=== PATIENT | female | born 1970 | race Caucasian/White ===

== ENCOUNTER → 2019-03-02 08:48 | Outpatient (CLI) | payer OTHER, SELFPAY ==
--- NOTE | 2019-03-02 08:52 | BI_ITS ---
MAMMOGRAPHY - BILATERAL SCREENING REASON FOR EXAM: Female, 48 years old. Routine annual screening examination. PERTINENT HISTORY: Grandmother with breast cancer. Prior bilateral breast reduction surgery. TECHNIQUE: Digital bilateral breast mila (3D mammographic acquisition) in the CC and MLO projections. 2-D mediolateral oblique (MLO) and craniocaudad (CC) views of both breasts were obtained. CAD: Full Field Digital Mammography with Computer Added Detection was performed. COMPARISON: Comparison is made with prior examination dated March 25, 2016. FINDINGS: Breast Composition: The breasts are heterogeneously dense, which may obscure small masses. There are no dominant masses or suspicious calcifications. No other significant abnormalities are identified. There has been no significant change since the prior study. BI/SCREEN MAMM (CAD) W/MILA BILAT IMPRESSION: Stable bilateral screening mammogram. Yearly follow-up mammogram recommended. (A) ASSESSMENT CATEGORY: BIRADS Category 1: Negative. A letter regarding these results will be sent to the patient by the facility within 30 days. Approximately 10% of breast cancers are not detected by mammography. A normal mammogram should not delay biopsy of a clinically suspicious abnormality. [id number] Electronically Signed: Phillip Zaidi, at 8:44 EST , Service support ,
== END ==
PROVIDERS: Family Provider Internal Medicine; PCP Internal Medicine; Referring Provider Internal Medicine; Visit Provider Internal Medicine
DX: Z12.31 Encounter for screening mammogram for malignant neoplasm of breast (principal); I10 Essential (primary) hypertension
CPT/HCPCS: 77063; 77067

== ENCOUNTER → 2023-09-25 | Outpatient (CLI) | payer OTHER, SELFPAY ==
[2023-09-25 14:53] LABS: ALB/GLOB Ratio 1.2 RATIO (0.9-2.4); AST(SGOT) 17 U/L (15-37); Alanine Aminotransfer ALT/SGPT 23 U/L (13-56); Alkaline Phosphatase 66 U/L (45-117); Anion Gap 7 (5-15); BUN 15 mg/dL (7-18); BUN/Creat Ratio 20.9 RATIO (10-20); Calcium,Total 9.5 mg/dL (8.5-10.1); Chloride 105 mmol/L (98-107); Cholesterol 251 mg/dL (200); Creatinine, Serum 0.72 mg/dL (0.55-1.02); EST Glomerular Filtration Rate 90 mL/min (>60); Est Glom Filt Rate - Afr Amer 109 mL/min (>60); Globulin 3.2 g/dL (2.2-4.2); Glucose 93 mg/dL (74-106); High Density Lipoprotein 47 mg/dL; Potassium 3.6 mmol/L (3.5-5.1); Protein, Total 7.2 g/dL (6.4-8.2); Sodium Level 139 mmol/L (136-145); Thyroid Stim Hormone (TSH) 1.71 uIU/mL (0.358-3.74); Triglycerides 211 mg/dL; Very Low Density Lipoprotein 42 mg/dL (5-40)
== END | disposition home or self-care (01) ==
PROVIDERS: PCP Family Medicine; Referring Provider Family Medicine; Visit Provider Family Medicine
DX: Z12.31 Encounter for screening mammogram for malignant neoplasm of breast (principal); Z13.220 Encounter for screening for lipoid disorders; Z13.1 Encounter for screening for diabetes mellitus
CPT/HCPCS: 36415; 80053; 80061; 84443

== ENCOUNTER → 2024-10-31 | Outpatient (CLI) | payer OTHER, SELFPAY ==
[2024-10-31 10:09] LABS: AST(SGOT) 16 U/L (<=31); Alanine Aminotransfer ALT/SGPT 18 U/L (<=34); Albumin, Serum 4.4 g/dL (3.5-5.0); Alkaline Phosphatase 85 U/L (35-104); Anion Gap 12 (5-15); BUN 14 mg/dL (4-19); BUN/Creat Ratio 18.2 RATIO (10-20); Calcium,Total 9.7 mg/dL (7.6-11.0); Carbon Dioxide 27.2 mmol/L (21.0-32.0); Chloride 101 mmol/L (98-108); Cholesterol 276 mg/dL (<=200); Globulin 2.5 g/dL (2.2-4.2); Glucose 91 mg/dL (70-99); Low Density Lipoprotein Calc. 184 mg/dL; Potassium 4.1 mmol/L (3.3-5.1); Triglycerides 237 mg/dL; Very Low Density Lipoprotein 47 mg/dL (5-40); cholesterol:hdl ratio screen 6.16
== END | disposition home or self-care (01) ==
PROVIDERS: PCP Family Medicine; Referring Provider Family Medicine; Visit Provider Family Medicine
DX: E78.5 Hyperlipidemia, unspecified (principal); Z13.1 Encounter for screening for diabetes mellitus
CPT/HCPCS: 36415; 80053; 80061

== ENCOUNTER → 2024-12-04 | Outpatient (CLI) | payer OTHER, SELFPAY ==
--- NOTE | 2024-12-04 10:11 | VDLE_ITS ---
Reason For Study Reason For Study: Pain RIGHT LEFT GSV is normal. CFV is compressible, spontaneous, phasic, competent, CFV is compressible, spontaneous, phasic, competent and demonstrates normal augmentation. and demonstrates normal augmentation. FV is compressible, spontaneous, phasic, competent and demonstrates normal augmentation. POP V is compressible, spontaneous, phasic, competent and demonstrates normal augmentation. T/P Trunk is compressible. PTV is compressible. RT PerV is compressible. Noncompressible bright intraluminal echoes noted in the prox SSV consistent with chronic DVT. Procedure This is a venous duplex using B-mode, color flow and spectral Doppler. Exam performed in department. A preliminary report was called and/or faxed to [facility]. VL/Venous Duplex US, Unilateral Interpretation Summary Deep veins of the right lower extremity are patent and compressible segmentally . There is no evidence of right lower extremity deep vein thrombosis. The right great saphenous vein appears patent a nd compressible segmentally. 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 Ordering Physician: Elvie Campos Referring Physician: Elvie Campos Performed By: Brandi Gallagher RVT
--- OUTSIDE RECORDS SUMMARY | 2024-12-04 18:50 | XMS RPT_ITS | CCD ---
Author Organization [facility] Care Team Providers Care Dietician Name Role Phone Dee Stevens Unavailable Juan Richardson Unavailable Fast, Zora A Unavailable Kit Delarosa Unavailable Unavailable Oyla Lopez E Unavailable Gabriela Liriano Unavailable Unavailable Unavailable Unavailable Susan Sam Unavailable Unavailable Unavailable Unavailable Gabriela Liriano Unavailable Unavailable Kit Delarosa Unavailable Unavailable Kit Russell Unavailable Unavailable Nina Sheth Unavailable Unavailable Rodney DO, Dee Unavailable Dr. Juan Richardson Unavailable Fast DO, Zora A Unavailable Nina Sheth LPN Unavailable Unavailable Kit Russell LPN Unavailable Unavailable Gabriela Liriano RN Unavailable Unavailable Unavailable Unavailable Az Celaya MD Primary Care Provider [phone] Rodney DO Dee Unavailable Fast DO, Zora A Unavailable Az Celaya MD Primary Care Provider [phone] Unavailable Primary Care Provider Unavailabl e Magdi PA-C, Trish Primary Care Provider [phone] Magdi PA-CTrish Attending Provider Magdi PA-C, Trish Referring Provider Elvie Campos Attending Unavailable Magdi PA, Trish Primary Care Unavailable Magdi PA, Trish Referring Unavailable Magdi PA, Trish Referring Unavailable Magdi PA, Trish Primary Care Unavailable Juli Moyerberly Attending Unavailable Campos PA, Elvie Attending Provider Medications Current Medications Medication Drug Class(es) Dates Sig (Normalized) Sig (Original) cholecalciferol 0.025 mg oral capsule (20 sources) Vitamin D Start: 11-28-2024 take 1 capsule by mouth once daily Cholecalciferol (Vitamin D3) 25 mcg (1,000 unit) capsule Active 25 ug PO daily November 28, 2024 12:00am take 1 tablet by mouth once laura y cholecalciferol (VITAMIN D3) 5,000 unit tab Take 5,000 Units by mouth once daily. 0 Active take 1 [IU] by mouth once daily Vitamin D3 5000 UNIT Oral Capsule daily (5000 UNIT) Active Comment on above: Take 5,000 Units by mouth once daily. Kandice Ugjw-Xdmfvtmb-Mtbpkxcvy Ac (Stebbins Oil) 1,000 mg capsule (1 source) Start: 11-28-2024 Kandice Ceoo-Lhhecomo-Vrijyj williams Ac (Stebbins Oil) 1,000 mg capsule Active 1 NMA PO THREE TIMES A DAY November 28, 2024 12:00am administer with meals hydroCHLOROthiazide 12.5 mg / losartan potassium 100 mg oral tablet (20 sources) Thiazide Diuretic, Angiotensin 2 Receptor Ragini Start: 11-28-2024 Losartan-Hydrochloro thiazide 100-12.5 mg tablet Active 1 {tbl} PO daily November 28, 2024 12:00am Start: 03-22-2015 End: 09-17-2021 take 1 tablet by mouth once daily losartan-hydroCHLOROthiazide (HYZAAR) 100-12.5 mg per tablet Take 1 tablet by mouth once daily. 90 tablet 3 09/17/2021 Active Comment on above: Take 1 tablet by kimi once daily. tumeric (1 source) Start: 11-28-2024 tumeric Active PO November 28, 2024 12:00am Completed/Discontinued Medications Medication Drug Class(es) Dates Sig (Normalized) Sig (Original) amLODIPine 5 mg oral tablet (15 sources) Dihydropyridine Calcium Channel Ragini Start: 05-24-2012 End: 05-24-2012 take 1 tablet by mouth once daily AMLODIPINE BESYLATE, 5MG (Oral Tablet) 1 Tablet qd for 0 days Quantity: 30 {Tablet} Refills: 0 Ordered: 24-May-2012 Dee Stevens DO, DO, Kathleen Start : 24-May-2012 End : 24-May-2012 Discontinued Comments: edema Comment on above: edema amoxicillin 875 mg / clavulanate 125 mg oral tablet (15 sources) Penicillin-class Antibacterial Start: 07-17-2017 End: 07-31-2017 take 1 tablet by mouth twice daily Augmentin 875-125 MG Oral Tablet 1 (one) Tablet bid for 14 days Quantity: 28 {Tablet} Refills: 0 Ordered: 17-Jul-2017 Olya Lopez Start : 17-Jul-2017 End : 31-Jul-2017 Inactive biotin 5 mg oral tablet (15 sources) Start: 12-04-2015 take 1 tablet by mouth once daily Biotin 5000 MCG Oral Tablet 1 (one) Tablet qd for 30 days Refills: 0 Ordered: 04-Dec-2015 Dee Stevens DO, DO, Kathleen Start : 04-Dec-2015 Active clotrimazole 10 mg oral lozenge (15 sources) Azole Antifungal Start: 07-17-2017 End: 07-27-2017 Clotrimazole 10 MG Mouth/Throat Sean 1 (one) Sean 5 x daily for 10 days Quantity: 50 {Sean} Refills: 0 Ordered: 17-Jul-2017 Olya Lopez Start : 17-Jul-2017 End : 27-Jul-2017 Inactive evening primrose oil 1000 mg oral capsule (15 sources) Start: 12-04-2015 take 1 capsule by mouth once daily Evening Stebbins Oil 1000 MG Oral Capsule 1 (one) Capsule qd for 30 days Refills: 0 Ordered: 04-Dec-2015 Dee Stevens DO, DO, Kathleen Start : 04-Dec-2015 Active evening primrose oil (EVENING PRIMROSE ORAL) (7 sources) evening primrose oil (EVENING PRIMROSE ORAL) Take 1,000 mg by mouth. 0 Active Comment on above: Take 1,000 mg by kimi th. 24 hr felodipine 5 mg extended release oral tablet (15 sources) Dihydropyridine Calcium Channel Ragini Start: 11-23-2009 End: 04-05-2011 take 1 tablet by mouth once daily PLENDIL, 5MG (Oral Tablet Extended Release 24 Hour) 1 Tablet ER 24HR QD for 90 days Quantity: 90 {Tablet_ER_24HR} Refills: 3 Ordered: 23-Nov-2009 Tamra Prado Start : 23-Nov-2009 End : 05-Apr-2011 Discontinued Comments: This order discontinued per [facility]. Comment on above: This order discontin ued per [facility]. fluticasone propionate 0.05 mg/actuat metered dose nasal spray (16 sources) Corticosteroid Start: 12-19-2017 Fluticasone Propionate 50 MCG/ACT Nasal Suspension 1 (one) Suspension uad for 0 days Quantity: 1 {Bottle} Refills: 0 Ordered: 19-Dec-2017 Dee Stevens DO, DO, Kathleen Start : 19-Dec-2017 Active Start: 03-22-2015 End: 07-05-2021 take 2 spray(s) nasal route once daily fluticasone (FLONASE) 50 mcg/actuation nasal spray Use 2 Sprays in each nostril once daily. 1 Bottle 0 03/22/2015 07/05/2021 Discontinued Comment on above: Use 2 Sprays in each nostril once daily. furosemide 20 mg oral tablet (15 sources) Loop Diuretic Start: 013 End: 013 take 1 tablet by mouth once daily LASIX, 20MG (Oral Tablet) 1 Tablet qd for 0 days Quantity: 2 {Tablet} Refills: 0 Ordered: 18-Jun-2012 Gabriela Liriano RN Start : 24-May-2012 End : 18-Jun-2012 Inactive hydroCHLOROthiazide 12.5 mg oral tablet (15 sources) Thiazide Diuretic Start: 022 take 1 tablet by mouth once daily hydroCHLOROthiazide 12.5 MG Oral Tablet 1 (one) Tablet daily for 30 days Quantity: 30 {Tablet} Refills: 0 Ordered: 03-Aug-2021 Dee Stevens DO, DO, Kathleen Start : 03-Aug-2021 Active Start: 06-28-2021 take 1 tablet by kimi th once daily hydroCHLOROthiazide 12.5 MG Oral Tablet 1 (one) Tablet daily for 30 days Quantity: 30 {Tablet} Refills: 0 Ordered: 28-Jun-2021 Dee Stevens DO, DO, Kathleen Start : 28-Jun-2021 Active Start: 05-31-2021 take 1 tablet by kimi th once daily hydroCHLOROthiazide 12.5 MG Oral Tablet 1 (one) Tablet daily for 30 days Quantity: 30 {Tablet} Refills: 0 Ordered: 31-May-2021 Rodney LUIS, Dee Stevens DO Dee Start : 31-May-2021 Active Start: 05-12-2020 take 1 tablet by kimi th once daily hydroCHLOROthiazide 12.5 MG Oral Tablet 1 (one) Tablet daily for 90 days Quantity: 90 {Tablet} Refills: 3 Ordered: 12-May-2020 Rodney DO, Dee Stevens DO Dee Start : 12-May-2020 Active Start: 05-06-2020 take 1 tablet by kimi th once daily hydroCHLOROthiazide 12.5 MG Oral Tablet 1 (one) Tablet daily for 90 days Quantity: 90 {Tablet} Refills: 0 Ordered: 06-May-2020 Rodney LUIS, Dee Stevens DO Dee Start : 06-May-2020 Active Start: 03-30-2020 End: 03-24-2020 take 1 tablet by mouth once daily hydroCHLOROthiazide 12.5 MG Oral Tablet 1 (one) Tablet daily for 90 days Quantity: 90 {Tablet} Refills: 0 Ordered: 30-Mar-2020 Rodney LUIS, Dee Stevens DO Dee Start : 30-Mar-2020 End : 24-Mar-2020 Active Start: 12-25-2019 take 1 tablet by kimi th once daily hydroCHLOROthiazide 12.5 MG Oral Tablet 1 (one) Tablet daily for 90 days Quantity: 90 {Tablet} Refills: 0 Ordered: 25-Dec-2019 Susan Sam CMA Start : 25-Dec-2019 Active Start: 01-02-2019 take 1 tablet by kimi th once daily hydroCHLOROthiazide 12.5 MG Oral Tablet 1 (one) Tablet daily for 90 days Quantity: 90 {Tablet} Refills: 3 Ordered: 02-Jan-2019 Rodney LUIS Dee Stevens DO Dee Start : 02-Jan-2019 Active Start: 07-11-2012 End: 05-22-2013 take 1 tablet by mouth once daily, then take 0.5 tablet by mouth once daily HYDROCHLOROTHIAZIDE, 12.5MG (Oral Tablet) 1/2 Tablet qd with plain benicar 1/2 20mg samples for 0 days Quantity: 15 {Tablet} Refills: 0 Ordered: 22-May-2013 Tamra Prado Start : 11-Jul-2012 End : 22-May-2013 Discontinued Comments: DISREGARD 1 qd rx sent in earlier, patient needs 1/2 qd Comment on above: DISREGARD 1 qd rx se nt in earlier, patient needs 1/2 qd hydroCHLOROthiazide 12.5 mg / olmesartan medoxomil 20 mg oral tablet (15 sources) Thiazide Diuretic, Angiotensin 2 Receptor Ragini Start: 013 End: 013 take 1 tablet by mouth once daily BENICAR HCT, 20-12.5MG (Oral Tablet) 1 (one) Tablet qd for 0 days Quantity: 90 {Tablet} Refills: 3 Ordered: 30-Aug-2012 Prasanna Zora Start : 30-Aug-2012 End : 30-Aug-2012 Discontinued losartan potassium 100 mg oral tablet (13 sources) Angiotensin 2 Receptor Ragini Start: take 1 tablet by mouth once daily Losartan Potassium 100 MG Oral Tablet 1 (one) Tablet daily for 90 days Quantity: 90 {Tablet} Refills: 3 Ordered: 03-Jun-2021 Dee Stevens DO, DO, Kathleen Start : 03-Jun-2021 Active Start: 05-06-2020 take 1 tablet by kimi once daily Losartan Potassium 100 MG Oral Tablet 1 (one) Tablet daily for 90 days Quantity: 90 {Tablet} Refills: 3 Ordered: 06-May-2020 Dee Stevens DO, DO, Kathleen Start : 06-May-2020 Active Start: 02-24-2020 End: 02-23-2020 take 1 tablet by mouth once daily Losartan Potassium 100 MG Oral Tablet 1 (one) Tablet daily for 90 days Quantity: 90 {Tablet} Refills: 0 Ordered: 24-Feb-2020 Dee Stevens DO, DO, Kathleen Start : 24-Feb-2020 End : 23-Feb-2020 Active Start: 02-24-2020 End: 02-23-2020 take 1 tablet by mouth once daily Losartan Potassium 100 MG Oral Tablet 1 (one) Tablet daily for 90 days Quantity: 90 {Tablet} Refills: 0 Ordered: 24-Feb-2020 Dee Stevens DO, DO, Kathleen Start : 24-Feb-2020 End : 23-Feb-2020 Active Start: 11-25-2019 take 1 tablet by kimi th once daily Losartan Potassium 100 MG Oral Tablet 1 (one) Tablet daily for 90 days Quantity: 90 {Tablet} Refills: 0 Ordered: 25-Nov-2019 Susan Sam CMA Start : 25-Nov-2019 Active Start: 01-02-2019 take 1 tablet by kimi th once daily Losartan Potassium 100 MG Oral Tablet 1 (one) Tablet daily for 90 days Quantity: 90 {Tablet} Refills: 3 Ordered: 02-Jan-2019 Dee Stevens DO, DO, Kathleen Start : 02-Jan-2019 Active No current meds at this time (15 sources) No current meds at this time Inactive OTC PRODUCT (1 source) End: 07-05-2021 take 500 mg by mouth once daily OTC PRODUCT Take 500 mg by mouth once daily. 0 07/05/2021 Discontinued (Erroneous entry) Comment on above: Take 500 mg by mouth once daily. Turmeric Curcumin 500 MG Oral Capsule (15 sources) Start: 12-04-2015 take 1 capsule by mouth once daily Turmeric Curcumin 500 MG Oral Capsule 1 (one) Capsule qd for 30 days Refills: 0 Ordered: 04-Dec-2015 Dee Stevens DO, DO, Kathleen Start : 04-Dec-2015 Active turmeric root extract 500 mg cap (7 sources) Start: 07-05-2021 turmeric root extract 500 mg cap Once daily 0 07/05/2021 Active Comment on above: Once daily Problems Active Problems Problem Classification Problem Date Documented Da te Episodic/Chronic Disorders of lipid metabolism (20 sources) Hyperlipidemia, unspecified; Translations: [Hyperlipidemia] Onset: 11-06-2024 07-17-2017 Chronic Essential hypertension (20 sources) Benign essential hypertension; Translations: [Hypertensive disorder] Onset: 07-05-2021 07-17-2017 Chronic Genitourinary symptoms and ill-defined conditions (20 sources) Blood in urine; Translations: [Hematuria] Resolved: 04-05-2011 06-18-2012 Episodic Immunizations and screening for infectious disease (20 sources) Need for prophylactic vaccination and inoculation against influenza; Translations: [Needs influenza immunization] 05-12-2020 Episodic Menstrual disorders (20 sources) Irregular menstrual cycle; Translations: [Irregular periods] Resolved: 12-04-2015 12-04-2015 Chronic Neoplasms of unspecified nature or uncertain behavior (15 sources) Neoplasm of uncertain behavior of skin; Translations: [Atypical Spitz nevus] 07-17-2017 Episodic Comment on above: refer bonecatrina to sha ve off-if pt wishes Nonmalignant breast conditions (15 sources) Hypertrophy of breast; Translations: [Hypertrophy of breast] 07-17-2017 Episodic Comment on above: Breast reduction 9/0 5 Nutritional deficiencies (20 sources) Vitamin D deficiency; Translations: [Vitamin D deficiency] 07-17-2017 Chronic Other nutritional; endocrine; and metabolic disorders (20 sources) Hypocalcemia; Translations: [Hypocalcemia] 07-17-2017 Chronic Other nutritional; endocrine; and metabolic disorders (13 sources) Body mass index 25-29 - overweight; Translations: [BMI 28.0-28.9,adult] 01-04-2019 Chronic Other screening for suspected conditions (not mental disorders or infectious disease) (9 sources) Patient encounter status; Translations: [Encounter for screening mammogram for breast cancer (Renamed from Encounter for screening mammogram for malignant neoplasm of breast)] 05-12-2020 Episodic Other upper respiratory infections (10 sources) Sinusitis; Translations: [Sinusitis] Resolved: 05-12-2020 05-12-2020 Chronic Residual codes; unclassified (16 sources) Edema; Translations: [Edema] Resolved: 12-04-2015 Episodic Residual codes; unclassified (10 sources) H/O: hysterectomy; Translations: [History of partial hysterectomy] 07-17-2017 Episodic Comment on above: done for uterine fib riods - one ovary remaining Residual codes; unclassified (10 sources) Needs influenza immunization; Translations: [Need for prophylactic vaccination and inoculation against influenza] 07-17-2017 Episodic Residual codes; unclassified (4 sources) Increased body mass index; Translations: [BMI 29.0-29.9,adult] 07-17-2017 Episodic Residual codes; unclassified (5 sources) Non-smoker; Translations: [Nonsmoker] 05-12-2020 Episodic Unclassified (20 sources) Benign essential HTN (401.1) Unclassified (20 sources) Unclassified (20 sources) Patient encounter status; Translations: [Encounter for screening mammogram for breast cancer (Renamed from Encounter for screening mammogram for malignant neoplasm of breast)] 07-17-2017 Unclassified (20 sources) Non-smoker; Translations: [Nonsmoker] 07-17-2017 Unclassified (15 sources) Atypical Nevus(238.2) Unclassified (20 sources) Benign essential HTN Unclassified (20 sources) History of colon polyps Unclassified (15 sources) History of partial hysterectomy Unclassified (18 sources) BMI 28.0-28.9,adult Varicose veins of lower extremity (1 source) Varicose veins of lower extremity; Translations: [Asymptomatic varicose veins of unspecified lower extremity] 12-04-2024 Episodic Past or Other Problems Problem Classification Problem Date Documented Da te Episodic/Chronic Administrative/social admission (10 sources) Medical examinations/report s status; Translations: [Well woman exam] Resolved: 10-12-2009 01-27-2015 Episodic Adverse effects of medical drugs (15 sources) Unspecified adverse effect of unspecified drug, medicinal and biological substance; Translations: [Medication side effects] Resolved: 12-04-2015 12-04-2015 Episodic Benign neoplasm of uterus (15 sources) Uterine leiomyoma; Translations: [Uterine fibroid] Resolved: 12-04-2015 12-04-2015 Episodic Comment on above: going for surgery Diseases of mouth; excluding dental (20 sources) Disorder of tongue; Translations: [Ulcer of mouth] Resolved: 05-12-2020 07-17-2017 Episodic Mycoses (15 sources) Candidiasis of mouth; Translations: [Thrush] Resolved: 05-12-2020 07-17-2017 Episodic Other and unspecified benign neoplasm (20 sources) History of polyp of colon; Translations: [History of colon polyps] Onset: 07-05-2021 07-17-2017 Episodic Comment on above: scope 2016- repeat i n 7yrs Other non-traumatic joint disorders (15 sources) Joint pain; Translations: [Pain in joint involving other specified sites] Resolved: 12-04-2015 12-04-2015 Episodic Comment on above: Shoulder pain Other nutritional; endocrine; and metabolic disorders (18 sources) Body mass index 25-29 - overweight; Translations: [BMI 28.0-28.9,adult] Onset: 07-05-2021 05-12-2020 Episodic Other upper respiratory infections (20 sources) Acute sinusitis; Translations: [Sinusitis] Resolved: 05-12-2020 03-10-2015 Episodic Residual codes; unclassified (14 sources) Edema, unspecified; Translations: [Swelling - edema - symptom] Resolved: 12-04-2015 12-04-2015 Episodic Unclassified (15 sources) Abortions/Miscarria ges; Translations: [Abortions/Miscarri ages] 07-17-2017 Comment on above: Miscarriage Jan Unclassified (15 sources) Deliveries (Parity); Translations: [Deliveries (Parity)] 07-17-2017 Comment on above: 2 Unclassified (20 sources) well female Resolved: 10-12-2009 06-18-2012 Unclassified (15 sources) Sinusitis,acute (461.9) Unclassified (20 sources) Well Woman Exam (V72.31) (Pap,Mammo,Routine Female) (Renamed from Well Woman V72.31 (p,m)) Unclassified (15 sources) Pregnancies (); Translations: [Pregnancies ()] 07-17-2017 Comment on above: 3 Unclassified (20 sources) Unspecified Diagnosis 07-17-2017 Unclassified (15 sources) Medication side effects (995.20) Unclassified (15 sources) Mouth ulcer Unclassified (15 sources) BMI 29.0-29.9,adult Unclassified (15 sources) Tongue irritation Unclassified (15 sources) Thrush Unclassified (20 sources) Uterine Fibroid (218.9) Results Test Name Value Interpretation Reference Range Facility Anion gap in Serum or Plasma Ordered By: Trish Fairbanks on 10-31-2024 Anion gap [Moles/Vol] 12 mmol/L 09-05 [facility] BUN/creatinine ratioOrdered By: Trish Fairbanks 10-31-2024 Urea nitrogen/Creatinine [Mass ratio] 18.2 mg/mg 02-10 [facility] Bilirubin, totalOrdered By: Trish Fairbanks on 10-31-2024 Bilirubin [Mass/Vol] 0.47 mg/dL 0.00-1.30 [facility] Calculated very low density lipoprotein (VLDL) cholesterol measurementOrdered By: Trish Fairbanks on 10-31-2024 Calculated very low density lipoprotein (VLDL) cholesterol measurement 47 mg/dL High 5-40 [facility] Carbon dioxide, total [Moles /volume] in Central venous bloodOrdered By: Trish Fairbanks on 10-31-2024 CO2 [Moles/Vol] 27.2 mmol/L 21.0-32.0 [facility] Chloride assayOrdered By: Luigi hawkinsrogelio Fairbanks on 10-31-2024 Chloride [Moles/Vol] 101 mmol/L 98-108 [facility] Comprehensive Metabolic Prof ilon 10-31-2024 Albumin [Mass/Vol] 4.4 g/dL Normal 3.5-5.0 [facility] Comment on above: Performed By: #### L 500.4100, [id number] #### [facility] [address] [place], [address] Albumin/Globulin [Mass ratio] 1.7 {ratio} Normal 0.9-2.4 [facility] Comment on above: Performed By: #### L 500.4100, [id number] #### [facility] [address] [place], [address] ALK PHOS 85 U/L Normal 35-104 [facility] Comment on above: Performed By: #### L [id number], [id number] #### [facility] [address] [place], [address] ALT [Catalytic activity/Vol] 18 U/L Normal <=34 [facility] Comment on above: Performed By: #### L [id number], [id number] #### [facility] [address] [place], [address] AST [Catalytic activity/Vol] 16 U/L Normal <=31 [facility] Comment on above: Performed By: #### L [id number], [id number] #### [facility] [address] [place], [address] Bilirubin [Mass/Vol] 0.47 mg/dL Normal 0.00-1.30 [facility] Comment on above: Performed By: #### L [id number], [id number] #### [facility] [address] [place], [address] BUN/CRE 18.2 RATIO Normal 10-20 [facility] Comment on above: Performed By: #### L [id number], [id number] #### [facility] [address] [place], [address] Calcium [Mass/Vol] 9.7 mg/dL Normal 7.6-11.0 [facility] Comment on above: Performed By: #### L [id number], [id number] #### [facility] [address] [place], [address] Chloride [Moles/Vol] 101 mmol/L Normal 98-108 [facility] Comment on above: Performed By: #### L [id number], [id number] #### [facility] [address] [place], [address] CO2 [Moles/Vol] 27.2 mmol/L Normal 21.0-32.0 [facility] Comment on above: Performed By: #### L [id number], [id number] #### [facility] [address] [place], [address] Creatinine [Mass/Vol] 0.75 mg/dL Normal 0.70-1.20 [facility] Comment on above: Performed By: #### L [id number], [id number] #### [facility] [address] [place], [address] GAP 12 Normal 5-15 [facility] Comment on above: Performed By: #### L [id number], [id number] #### [facility] [address] [place], [address] GFR/1.73 sq M.predicted among non-blacks MDRD (S/P/Bld) [Vol rate/Area] 94 mL/min/{1.73_m2} Normal >60 [facility] Comment on above: Result Comment: mL/m in/1.73m2 CKD-EPI Creatinine Equation (2020) Performed By: #### L 500.4100, [id number] #### [facility] [address] [place], [address] Globulin (S) [Mass/Vol] 2.5 g/dL Normal 2.2-4.2 [facility] Comment on above: Performed By: #### L [id number], [id number] #### [facility] [address] [place], [address] Glucose [Mass/Vol] 91 mg/dL Normal 70-99 [facility] Comment on above: Performed By: #### L [id number], [id number] #### [facility] [address] [place], [address] Potassium [Moles/Vol] 4.1 mmol/L Normal 3.3-5.1 [facility] Comment on above: Performed By: #### L [id number], [id number] #### [facility] [address] [place], [address] Sodium [Moles/Vol] 140 mmol/L Normal 133-145 [facility] Comment on above: Performed By: #### L [id number], [id number] #### [facility] [address] [place], [address] T PROT 6.9 g/dL Normal 5.9-8.4 [facility] Comment on above: Performed By: #### L [id number], [id number] #### [facility] [address] [place], [address] Urea nitrogen [Mass/Vol] 14 mg/dL Normal 4-19 [facility] Comment on above: Performed By: #### L [id number], [id number] #### [facility] [address] [place], [address] Glomerular filtration rate ( GFR) estimation/1.73 sq m using serum, plasma, or whole bOrdered By: Trish Vail on 10-31-2024 GFR/1.73 sq M.predicted among non-blacks MDRD (S/P/Bld) [Vol rate/Area] 94 mL/min/{1.73_m2} >60 [facility] Comment on above: mL/min/1.73m2 CKD-EP I Creatinine Equation (2020) LDL calc ser/plasOrdered By: [facility] on 10-31-2024 Cholesterol in LDL [Mass/Vol] 184 mg/dL [facility] Comment on above: Ckqydntsos=492-734 m g/dL & Higher Hane=572 mg/dL or greater Laboratory - Chemistry and C hemistry - challengeOrdered By: [facility] on 10-31-2024 AST [Catalytic activity/Vol] 16 U/L <32 [facility] Lipid Profileon 10-31-2024 CHOL:HDL 6.16 Normal [facility] Comment on above: Performed By: #### L 500.4100, [id number] #### [facility] [address] [place], [place], [id number] Cholesterol [Mass/Vol] 276 mg/dL High <=200 [facility] Comment on above: Result Comment: Chol esterol level, Desirable <200 mg/dL Borderline high cholesterol 200-239 mg/dL High cholesterol >=240 mg/dL Recommendations of the NCEP Adult Treatment Panel for the following risk-cutoff thresholds for the [place] population. Performed By: #### L 500.4100, [id number] #### [facility] [address] [place], [place], [id number] Cholesterol in HDL [Mass/Vol] 45 mg/dL Normal [facility] Comment on above: Result Comment: Olga onal Cholesterol Education Program (NCEP) guidelines: <40 mg/dL: Low HDL-cholesterol (major risk factor for CHD) >= 60 mg/dL: High HDL-cholesterol (negative risk factor for CHD) HDL-cholesterol is affected by a number of factors, e.g. smoking, exercise, hormones, sex and age. Performed By: #### L 500.4100, L500.4050 #### [facility] [address] [place], [address] Cholesterol in LDL [Mass/Vol] 184 mg/dL Normal [facility] Comment on above: Result Comment: Bord zzuqmm=259-157 mg/dL Higher Hpho=408 mg/dL or greater Performed By: #### L 500.4100, L500.4050 #### [facility] [address] [place], [address] Cholesterol in VLDL [Mass/Vol] 47 mg/dL High 5-40 [facility] Comment on above: Performed By: #### L 500.4100, L500.4050 #### [facility] [address] [place], [address] Triglyceride [Mass/Vol] 237 mg/dL High [facility] Comment on above: Result Comment: The drugs N-Acetylcysteine and Metamizole may falsely depress this assay. Normal range: <150 mg/dL Borderline High: 150-199 mg/dL High: 200-499 mg/dL Very High: >500 mg/dL Performed By: #### L 500.4100, L500.4050 #### [facility] [address] [place], [address] Potassium measurement (mass/ volume)Ordered By: [facility] on 10-31-2024 Potassium (Unsp spec) [Mass/Vol] 4.1 mmol/L 3.3-5.1 [facility] Screening total cholesterol/ high density lipoprotein (HDL) cholesterol ratioOrdered By: [facility] on 10-31-2024 Cholesterol.total/Chol esterol in HDL [Mass ratio] 6.16 {ratio} [facility] Serum creatinine measurement (mass/volume)Ordered By: [facility] on 10-31-2024 Creatinine [Mass/Vol] 0.75 mg/dL 0.70-1.20 [facility] Serum globulin measurementOr dered By: Trish Fairbanks on 10-31-2024 Globulin (S) [Mass/Vol] 2.5 g/dL 2.2-4.2 [facility] Serum glucose measurement (m ass/volume)Ordered By: Trish Fairbanks on 10-31-2024 Glucose [Mass/Vol] 91 mg/dL 70-99 [facility] Serum or plasma alanine garcia otransferase (ALT) measurementOrdered By: Trish Hills on 10-31-2024 ALT [Catalytic activity/Vol] 18 U/L <35 [facility] Serum or plasma albumin librado urement (mass/volume)Ordered By: Trish Hills on 10-31-2024 Albumin [Mass/Vol] 4.4 g/dL 3.5-5.0 [facility] Serum or plasma albumin/glob ulin mass ratioOrdered By: [facility] Albumin/Globulin [Mass ratio] 1.7 {ratio} 0.9-2.4 [facility] Serum or plasma alkaline santo sphatase measurementOrdered By: [facility] 10-31-2024 ALP [Catalytic activity/Vol] 85 U/L 35-104 [facility] Serum or plasma calcium librado urement (mass/volume)Ordered By: Trish Fairbanks 10-31-2024 Calcium [Mass/Vol] 9.7 mg/dL 7.6-11.0 [facility] Serum or plasma cholesterol in HDL measurement (mass/volume)Ordered By: Trish Fairbanks on 10-31-2024 Cholesterol in HDL [Mass/Vol] 45 mg/dL >40 [facility] Comment on above: National Cholesterol Education Program (NCEP) guidelines:<40 mg/dL: Low HDL-cholesterol (major risk factor for CHD)>= 60 mg/dL: High HDL-cholesterol (negative risk factor for CHD)HDL-cholesterol is affected by a number of factors, e.g. smoking, exercise, hormones, sex and age. Serum or plasma cholesterol measurement (mass/volume)Ordered By: Trish Fairbanks on 10-31-2024 Cholesterol [Mass/Vol] 276 mg/dL High <201 [facility] Comment on above: Cholesterol level, D esirable <200 mg/dLBorderline high cholesterol 200-239 mg/dLHigh cholesterol >=240 mg/dLRecommendations of the NCEP Adult Treatment Panel for the following risk-cutoff thresholds for the [place] population. Serum or plasma urea nitroge n measurement (mass/volume)Ordered By: Trish Fairbanks on 10-31-2024 Urea nitrogen [Mass/Vol] 14 mg/dL 4-19 [facility] Sodium levelOrdered By: Edyta Fairbanks on 10-31-2024 Sodium [Moles/Vol] 140 mmol/L 133-145 [facility] Total proteinOrdered By: Juli Fairbanks on 10-31-2024 Protein [Mass/Vol] 6.9 g/dL 5.9-8.4 [facility] Triglycerides measurementOrd ered By: Trish Fairbanks on 10-31-2024 Triglyceride [Mass/Vol] 237 mg/dL High <199 [facility] Comment on above: The drugs N-Acetylcy steine and Metamizole may falsely depress this assay. Normal range: <150 mg/dLBorderline High: 150-199 mg/dLHigh: 200-499 mg/dLVery High: >500 mg/dL RUDDY SCREENINGon 08-06-2021 [facility] THROAT CULTURE ([id number])Ordere d By: Manager Career on 07-17-2017 Bacteria identified Respiratory culture Nom (Unsp spec) RRF Normal [facility] Work Phone: Comment on above: Routine respiratory roxana PATIENT NOT FASTINGP ERFORMED BY: SHANNON [facility] Msebvn[address] [facility] [id number] Information: SRC:TH Bacteria identified Respiratory culture Nom (Unsp spec) Final report Normal [facility] Work Phone: Comment on above: PATIENT NOT FASTINGP ERFORMED BY: SHANNON [facility] Icrfnk29[address] [facility] [id number] Information: SRC:TH CALCIFIDIOL (43105) VIT D 25 Ordered By: Manager Career on 12-04-2015 25-Hydroxyvitamin D2+25-Hydroxyvitamin D3 [Mass/Vol] 34.3 ng/mL Normal 30.0-100.0 [facility] Work Phone: Comment on above: Vitamin D deficiency has been defined by the [place] ofMedicine and an Endocrine Society practice guideline as alevel of serum 25-OH vitamin D less than 20 ng/mL (1,2).The Endocrine Society went on to further define vitamin Dinsufficiency as a level between 21 and 29 ng/mL (2).1. IOM ([place] of Medicine). 2010. Dietary reference intakes for calcium and D. [place]: The National Academies Press.2. Jayshree MF, Anjana MCGOWAN, Juan LUNA, et al. Evaluation, treatment, and prevention of vitamin D deficiency: an Endocrine Society clinical practice guideline. JCEM. 2010; 96(7):1911-30. PATIENT NOT FASTINGP ERFORMED BY: [facility] Buouff7408 [facility]in [place] [id number] CBC W/AUTO DIFF WBC (03687)O rdered By: Manager Career on 12-04-2015 Basophils (Bld) [#/Vol] 0.0 {x10E3/uL} Normal 0.0-0.2 [facility] Work Phone: Comment on above: PATIENT NOT FASTINGP ERFORMED BY: CB [facility] Mutnvt1042 [facility] MagicFirst[facility] [id number] Information: [id number] Basophils (Bld) [#/Vol] 0.0 10*3/uL Normal 0.0-0.2 [facility]; [facility] Work Phone: Comment on above: PATIENT NOT FASTINGP ERFORMED BY: CB [facility] Kiobzu[address] [employer] TechnologiesCape Fear Valley [facility] Hospitalin [place] [id number] Information: [id number] Basophils/100 WBC (Bld) 1 % Normal [facility] Work Phone: Comment on above: PATIENT NOT FASTINGP ERFORMED BY: CB [facility] Klflrk7475 [address] Xsens TechnologiesFirstHealth Moore [facility] Hospital [id number] Information: [id number] Eosinophils (Bld) [#/Vol] 0.2 {x10E3/uL} Normal 0.0-0.4 [facility] Work Phone: Comment on above: PATIENT NOT FASTINGP ERFORMED BY: [place] [address] [facility] [id number] Information: [id number] Eosinophils (Bld) [#/Vol] 0.2 10*3/uL Normal 0.0-0.4 [facility]; [facility] Work Phone: Comment on above: PATIENT NOT FASTINGP ERFORMED BY: [address] [id number] Information: [id number] Eosinophils/100 WBC (Bld) 3 % Normal [facility] Work Phone: Comment on above: PATIENT NOT FASTINGP ERFORMED BY: [address] [id number] Information: [id number] Erythrocyte distribution width (RBC) [Ratio] 13.3 % Normal 12.3-15.4 [facility] Work Phone: Comment on above: PATIENT NOT FASTINGP ERFORMED BY: [address] [id number] Information: [id number] Hematocrit (Bld) [Volume fraction] 42.1 % Normal 34.0-46.6 [facility] Work Phone: Comment on above: PATIENT NOT FASTINGP ERFORMED BY: [address] [id number] Information: [id number] Hemoglobin (Bld) [Mass/Vol] 13.7 g/dL Normal 11.1-15.9 [facility] Work Phone: Comment on above: PATIENT NOT FASTINGP ERFORMED BY: [facility] [facility] [id number] Information: [id number] Immature granulocytes (Bld) [#/Vol] 0.0 {x10E3/uL} Normal 0.0-0.1 [facility] Work Phone: Comment on above: PATIENT NOT FASTINGP ERFORMED BY: SHANNON Massey[address] [facility] [id number] Information: [id number] Immature granulocytes (Bld) [#/Vol] 0.0 10*3/uL Normal 0.0-0.1 [facility]; [facility] Work Phone: Comment on above: PATIENT NOT FASTINGP ERFORMED BY: SHANNON Massey[address] [facility] [id number] Information: [id number] Immature granulocytes/100 WBC (Bld) 0 % Normal [facility] Work Phone: Comment on above: PATIENT NOT FASTINGP ERFORMED BY: SHANNON Umanzor[address] [id number] Information: [id number] Lymphocytes (Bld) [#/Vol] 1.6 {x10E3/uL} Normal 0.7-3.1 [facility] Work Phone: Comment on above: PATIENT NOT FASTINGP ERFORMED BY: SHANNON Cleary Xhzblx3[address] [facility] [id number] Information: [id number] Lymphocytes (Bld) [#/Vol] 1.6 10*3/uL Normal 0.7-3.1 [facility]; [facility] Work Phone: Comment on above: PATIENT NOT FASTINGP ERFORMED BY: SHANNON Cleary Iosgzh88[address] [facility] [id number] Information: [id number] Lymphocytes/100 WBC (Bld) 23 % Normal [facility] Work Phone: Comment on above: PATIENT NOT FASTINGP ERFORMED BY: SHANNON Umanzorlin[address] [facility] [id number] Information: [id number] MCH (RBC) [Entitic mass] 31.4 pg Normal 26.6-33.0 [facility] Work Phone: Comment on above: PATIENT NOT FASTINGP ERFORMED BY: SHANNON Cleary Urnrhw[address] [facility] [id number] Information: [id number] MCHC (RBC) [Mass/Vol] 32.5 g/dL Normal 31.5-35.7 [facility] Work Phone: Comment on above: PATIENT NOT FASTINGP ERFORMED BY: SHANNON Craig[address] [id number] Information: [id number] MCV (RBC) [Entitic vol] 97 fL Normal 79-97 [facility] Work Phone: Comment on above: PATIENT NOT FASTINGP ERFORMED BY: SHANNON Cleary Ogwuhs[address] [id number] Information: [id number] Monocytes (Bld) [#/Vol] 0.6 {x10E3/uL} Normal 0.1-0.9 [facility] Work Phone: Comment on above: PATIENT NOT FASTINGP ERFORMED BY: SHANNON Craig[address] [id number] Information: [id number] Monocytes (Bld) [#/Vol] 0.6 10*3/uL Normal 0.1-0.9 [facility]; [facility] Work Phone: Comment on above: PATIENT NOT FASTINGP ERFORMED BY: SHANNON CragiLaura V[place] [address] [facility] [id number] Information: [id number] Monocytes/100 WBC (Bld) 9 % Normal [facility] Work Phone: Comment on above: PATIENT NOT FASTINGP ERFORMED BY: SHANNON ClearyKatherine Ville [address]45[address] [facility] [id number] Information: [id number] Neutrophils (Bld) [#/Vol] 4.5 {x10E3/uL} Normal 1.4-7.0 [facility] Work Phone: Comment on above: PATIENT NOT FASTINGP ERFORMED BY: SHANNON LabVikram Massey[address] [facility] [id number] Information: [id number],[id number] Neutrophils (Bld) [#/Vol] 4.5 10*3/uL Normal 1.4-7.0 [facility]; [facility] Work Phone: Comment on above: PATIENT NOT FASTINGP ERFORMED BY: SHANNON LabCobassam MasseyFwrnft[address] [facility] [id number] Information: [id number] Neutrophils/100 WBC (Bld) 64 % Normal [facility] Work Phone: Comment on above: PATIENT NOT FASTINGP ERFORMED BY: SHANNON Massey6370 [facility] [id number] Information: [id number] Platelets (Bld) [#/Vol] 390 {x10E3/uL} Abnormal 150-379 [facility] Work Phone: Comment on above: PATIENT NOT FASTINGP ERFORMED BY: SHANNON LabCobassam MasseyOphvqv[address] [facility] [id number] Information: [id number] Platelets (Bld) [#/Vol] 390 10*3/uL Abnormal 150-379 [facility]; [facility] Work Phone: Comment on above: PATIENT NOT FASTINGP ERFORMED BY: SHANNON [facility] Tdnbdg2581 [address] [facility] [id number] Information: [id number] RBC (Bld) [#/Vol] 4.36 {x10E6/uL} Normal 3.77-5.28 [facility] Work Phone: Comment on above: PATIENT NOT FASTINGP ERFORMED BY: SHANNON LabVikram UmanzorFebnsb[address] [facility] [id number] Information: [id number] RBC (Bld) [#/Vol] 4.36 10*6/uL Normal 3.77-5.28 [facility]; [facility] Work Phone: Comment on above: PATIENT NOT FASTINGP ERFORMED BY: SHANNON Massey[address] [place] [id number] Information: [id number] WBC (Bld) [#/Vol] 7.1 {x10E3/uL} Normal 3.4-10.8 [facility] Work Phone: Comment on above: PATIENT NOT FASTINGP ERFORMED BY: SHANNON Massey[address] AliciaCape Fear Valley [facility] Hospitalin [place] [id number] Information: [id number] WBC (Bld) [#/Vol] 7.1 10*3/uL Normal 3.4-10.8 [facility]; [facility] Work Phone: Comment on above: PATIENT NOT FASTINGP ERFORMED BY: SHANNON Massey63Jamir Ricoox [facility] [id number] Information: [id number] LIPID PANEL (65133)Ordered B y: Manager Career on 12-04-2015 Cholesterol [Mass/Vol] 210 mg/dL Abnormal 100-199 [facility] Work Phone: Comment on above: PATIENT NOT FASTINGP ERFORMED BY: SHANNON Massey[address] [facility] [id number] Cholesterol in HDL [Mass/Vol] 39 mg/dL Abnormal [facility] Work Phone: Comment on above: According to ATP-III Guidelines, HDL-C >59 mg/dL is considered anegative risk factor for CHD. PATIENT NOT FASTINGP ERFORMED BY: SHANNON [facility] Ckfizg4575 [address] RoadDublin [place] [id number] Cholesterol in LDL [Mass/Vol] 138 mg/dL Abnormal 0-99 [facility] Work Phone: Comment on above: PATIENT NOT FASTINGP ERFORMED BY: SHANNON [facility] Juascm[address] [facility] [place] [id number] Cholesterol in LDL/Cholesterol in HDL [Mass ratio] 3.5 {ratio_units} Abnormal 0.0-3.2 [facility] Work Phone: Comment on above: LDL/HDL Ratio Men Wo men 1/2 Avg.Risk 1.0 1.5 Avg.Risk 3.6 3.2 2X Avg.Risk 6.2 5.0 3X Avg.Risk 8.0 6.1 PATIENT NOT FASTINGP ERFORMED BY: SHANNON [facility] Oavoax2974 [address] RoadDublin [place] [id number] Cholesterol in VLDL [Mass/Vol] 33 mg/dL Normal 5-40 [facility] Work Phone: Comment on above: PATIENT NOT FASTINGP ERFORMED BY: CB [facility] Keafzw7975 [address] RoadDublin [place] [id number] Triglyceride [Mass/Vol] 167 mg/dL Abnormal 0-149 [facility] Work Phone: Comment on above: PATIENT NOT FASTINGP ERFORMED BY: SHANNON [facility] Sukjpu4765 [address] RoadDublin [place] [id number] METABOLIC PANEL, COMPREHENSI VE (73294)Ordered By: Manager Career on 12-04-2015 Albumin [Mass/Vol] 4.3 g/dL Normal 3.5-5.5 [facility] Work Phone: Comment on above: PATIENT NOT FASTINGP ERFORMED BY: SHANNON [facility] Actfrd[address] Xsens TechnologiesDublin [place] [id number] Albumin/Globulin [Mass ratio] 1.7 {ratio} Normal 1.1-2.5 [facility] Work Phone: Comment on above: PATIENT NOT FASTINGP ERFORMED BY: CB [facility] Dbdsxk3006 [address] RoadDublin [place] [id number] ALP [Catalytic activity/Vol] 62 [iU]/L Normal 39-117 [facility] Work Phone: Comment on above: PATIENT NOT FASTINGP ERFORMED BY: CB [facility] Qvjbkq2820 [address] RoadDublin [place] [id number] ALP [Catalytic activity/Vol] 62 U/L Normal 39-117 [facility]; [facility] Work Phone: Comment on above: PATIENT NOT FASTINGP ERFORMED BY: SHANNON LabCobassam Jidusi9564 [address] RoadDublin [place] [id number] ALT [Catalytic activity/Vol] 8 [iU]/L Normal 0-32 [facility] Work Phone: Comment on above: PATIENT NOT FASTINGP ERFORMED BY: SHANNON LabCarirp Wpcopq0282 [address] RoadDublin [place] [id number] ALT [Catalytic activity/Vol] 8 U/L Normal 0-32 [facility]; [facility] Work Phone: Comment on above: PATIENT NOT FASTINGP ERFORMED BY: SHANNON [facility] Wlutki0487 [address] RoadDublin [place] [id number] AST [Catalytic activity/Vol] 13 [iU]/L Normal 0-40 [facility] Work Phone: Comment on above: PATIENT NOT FASTINGP ERFORMED BY: SHANNON Shaan Odinqa5829 [address] RoadDublin [place] [id number] AST [Catalytic activity/Vol] 13 U/L Normal 0-40 [facility]; [facility] Work Phone: Comment on above: PATIENT NOT FASTINGP ERFORMED BY: SHANNON Shaan Cmzrkq7610 [address] RoadDublin [place] [id number] Bilirubin [Mass/Vol] 0.6 mg/dL Normal 0.0-1.2 Comp rehensive [facility] Work Phone: Comment on above: PATIENT NOT FASTINGP ERFORMED BY: SHANNON LabCarirp Eywbbk2130 [address] RoadDublin [place] [id number] Calcium [Mass/Vol] 9.6 mg/dL Normal 8.7-10.2 [facility] Work Phone: Comment on above: PATIENT NOT FASTINGP ERFORMED BY: SHANNON LabCarirp Mtayar2202 [address] RoadDublin [place] [id number] Chloride [Moles/Vol] 96 mmol/L Abnormal 97-108 Comp rehensive [facility] Medicine Work Phone: Comment on above: PATIENT NOT FASTINGP ERFORMED BY: CB [facility] Qrxdta2006 [address] RoadDublin [place] [id number] CO2 [Moles/Vol] 24 mmol/L Normal 18-29 [facility] Internal Medicine Work Phone: Comment on above: PATIENT NOT FASTINGP ERFORMED BY: CB [facility] Glaqro2583 [address] RoadDublin [place] [id number] Creatinine [Mass/Vol] 0.73 mg/dL Normal 0.57-1.00 [facility] Work Phone: Comment on above: PATIENT NOT FASTINGP ERFORMED BY: CB [facility] Cyomlt6298 [address] RoadDublin [place] [id number] GFR/1.73 sq M predicted among blacks CKD-EPI (S/P/Bld) [Vol rate/Area] 114 mL/min/1.73 Normal [facility] Work Phone: Comment on above: PATIENT NOT FASTINGP ERFORMED BY: CB [facility] Dagsmh9945 [address] RoadDublin [place] [id number] GFR/1.73 sq M predicted among non-blacks CKD-EPI (S/P/Bld) [Vol rate/Area] 99 mL/min/1.73 Normal [facility] Work Phone: Comment on above: PATIENT NOT FASTINGP ERFORMED BY: CB [facility] Pcwmzz9033 [address] RoadDublin [place] [id number] Globulin (S) [Mass/Vol] 2.5 g/dL Normal 1.5-4.5 [facility] Internal Medicine Work Phone: Comment on above: PATIENT NOT FASTINGP ERFORMED BY: CB [facility] Bnhqep7491 [address] RoadDublin [place] [id number] Glucose [Mass/Vol] 83 mg/dL Normal 65-99 [facility] Internal Medicine Work Phone: Comment on above: PATIENT NOT FASTINGP ERFORMED BY: CB [facility] Khcrtu7051 [address] RoadDublin [place] [id number] Potassium [Moles/Vol] 4.3 mmol/L Normal 3.5-5.2 [facility] Internal Medicine Work Phone: Comment on above: PATIENT NOT FASTINGP ERFORMED BY: SHANNON [facility] Psmdlh6547 [address] RoadDublin [place] [id number] Protein [Mass/Vol] 6.8 g/dL Normal 6.0-8.5 [facility] Internal Medicine Work Phone: Comment on above: PATIENT NOT FASTINGP ERFORMED BY: CB [facility] Yosoyq5943 [address] RoadDublin [place] [id number] Sodium [Moles/Vol] 140 mmol/L Normal 134-144 [facility] Internal Medicine Work Phone: Comment on above: PATIENT NOT FASTINGP ERFORMED BY: CB [facility] Fhgxwm0516 [address] RoadDublin [place] [id number] Urea nitrogen [Mass/Vol] 13 mg/dL Normal 6-24 [facility] Work Phone: Comment on above: PATIENT NOT FASTINGP ERFORMED BY: CB [facility] Cwaxxz8410 [address] RoadDublin [place] [id number] Urea nitrogen/Creatinine [Mass ratio] 18 mg/mg Normal 9-23 [facility] Work Phone: Comment on above: PATIENT NOT FASTINGP ERFORMED BY: SHANNON [facility] Hwjbob7043 [address] RoadDublin [place] [id number] MICROALBUMINOrdered By: Syst em Geophysical Data Technician on 12-04-2015 Albumin DL <= 20 mg/L (U) [Mass/Vol] 13.7 ug/mL Normal [facility] Work Phone: Comment on above: PATIENT NOT FASTINGP ERFORMED BY: CB [facility] Oskuuv7876 [address] RoadDublin [place] [id number] Albumin/Creatinine (U) [Mass ratio] 8.2 {mg/g_creat} Normal 0.0-30.0 [facility] Work Phone: Comment on above: PATIENT NOT FASTINGP ERFORMED BY: CB [facility] Vcpznl7281 [address] RoadDublin [place] [id number] Creatinine (U) [Mass/Vol] 167.4 mg/dL Normal [facility] Work Phone: Comment on above: PATIENT NOT FASTINGP ERFORMED BY: SHANNON [facility] Btbork7674 [address] RoadDublin [place] [id number] TSH ([id number])Ordered By: Blanca m Geophysical Data Technician on 12-04-2015 TSH Qn 1.950 {uIU/mL} Normal 0.450-4.500 Comprehen sive Internal Medicine Work Phone: Comment on above: PATIENT NOT FASTINGP ERFORMED BY: SHANNON [facility] Tuslxx6996 [address] RoadDublin [place] [id number] URINALYSIS, W/ MICRO ([id number]) Ordered By: Manager Career on 12-04-2015 Appearance (U) Clear Normal Comprehens feliz Internal Medicine Work Phone: Comment on above: PATIENT NOT FASTINGP ERFORMED BY: SHANNON [facility] Vhwwcn1680 [address] RoadDublin [place] [id number] Bilirubin Ql (U) Negative Normal Comprehe nsive Internal Medicine Work Phone: Comment on above: PATIENT NOT FASTINGP ERFORMED BY: SHANNON [facility] Idptar0611 [address]Dublin [place] [id number] Bilirubin Ql (U) Negative Normal Comprehe nsive Internal Medicine; [facility] Work Phone: Comment on above: PATIENT NOT FASTINGP ERFORMED BY: SHANNON [facility] Kxzbrv0297 [address] RoadDublin [place] [id number] Color (U) Yellow Normal [facility] Work Phone: Comment on above: PATIENT NOT FASTINGP ERFORMED BY: SHANNON [facility] Ohtvjy8629 [address] RoadDublin [place] [id number] Glucose Ql (U) Negative Normal Comprehens feliz Internal Medicine Work Phone: Comment on above: PATIENT NOT FASTINGP ERFORMED BY: SHANNON [facility] Limglh3972 [address] RoadDublin [place] [id number] Glucose Ql (U) Negative Normal Comprehens feliz [facility] Medicine; [facility] Work Phone: Comment on above: PATIENT NOT FASTINGP ERFORMED BY: SHANNON [facility] Bfbtmt0064 [address] RoadDublin [place] [id number] Hemoglobin Ql (U) Negative Normal Compreh ensive Internal Medicine Work Phone: Comment on above: PATIENT NOT FASTINGP ERFORMED BY: SHANNON Massey[address] [facility] [id number] Hemoglobin Ql (U) Negative Normal Compreh ensive Internal Medicine; [facility] Work Phone: Comment on above: PATIENT NOT FASTINGP ERFORMED BY: SHANNON Massey[address] [facility] [id number] Ketones Ql (U) Negative Normal Comprehens feliz Internal Medicine Work Phone: Comment on above: PATIENT NOT FASTINGP ERFORMED BY: SHANNON Massey[address] [facility] [id number] Ketones Ql (U) Negative Normal Comprehens feliz [facility] Medicine; [facility] Work Phone: Comment on above: PATIENT NOT FASTINGP ERFORMED BY: SHANNON Umanzorlin[address] [facility] [id number] Leukocyte esterase Test strip Ql (U) Negative Normal [facility] Work Phone: Comment on above: PATIENT NOT FASTINGP ERFORMED BY: SHANNON Umanzorlin[address] [facility] [id number] Leukocyte esterase Test strip Ql (U) Negative Normal [facility] Medicine; [facility] Work Phone: Comment on above: PATIENT NOT FASTINGP ERFORMED BY: SHANNON Massey[address] [facility] [id number] Microscopic observation LM Nom (Urine sed) See below: Normal [facility] Work Phone: Comment on above: Microscopic was alberto cated and was performed. PATIENT NOT FASTINGP ERFORMED BY: SHANNON Umanzorlin[address] [facility] [id number] Microscopic observation LM Nom (Urine sed) MICRON Normal [facility] Work Phone: Comment on above: Microscopic follows if indicated. PATIENT NOT FASTINGP ERFORMED BY: SHANNON Umanzorlin6370 [facility] [place] [id number] Nitrite Ql (U) Negative Normal Comprehens feliz Internal Medicine Work Phone: Comment on above: PATIENT NOT FASTINGP ERFORMED BY: SHANNON Massey[address] [facility] [place] [id number] Nitrite Ql (U) Negative Normal Comprehens feliz Internal Medicine; [facility] Work Phone: Comment on above: PATIENT NOT FASTINGP ERFORMED BY: SHANNON Shaan Sprhat[address] [facility] [id number] pH (U) 7.0 [pH] Normal 5.0-7.5 [facility] Work Phone: Comment on above: PATIENT NOT FASTINGP ERFORMED BY: SHANNON Shaan Massey[address] [facility] [id number] Protein Ql (U) Negative Normal Comprehens feliz Internal Medicine Work Phone: Comment on above: PATIENT NOT FASTINGP ERFORMED BY: SHANNON Madiha Ldetqq[address] [facility] [id number] Protein Ql (U) Negative Normal Comprehens feliz Internal Medicine; [facility] Work Phone: Comment on above: PATIENT NOT FASTINGP ERFORMED BY: SHANNON Shaan Hodges[address] [facility] [id number] Specific gravity (U) [Rel density] 1.024 1 Normal 1.005-1.030 [facility] Work Phone: Comment on above: PATIENT NOT FASTINGP ERFORMED BY: SHANNON Madiha Pbhdgs[address] [facility] [id number] Urobilinogen (U) [Mass/Vol] 0.2 mg/dL Normal 0.2-1.0 [facility]; [facility] Work Phone: Comment on above: PATIENT NOT FASTINGP ERFORMED BY: SHANNON [facility] Mekbec[address] [facility] [id number] Urobilinogen Test strip (U) [Mass/Vol] 0.2 mg/dL Normal 0.2-1.0 Comprehensi Internal Medicine Work Phone: Comment on above: PATIENT NOT FASTINGP ERFORMED BY: SHANNON Umanzorlin[address] [facility] [id number] CBC with manual diff ([id number]) Ordered By: Manager Career on 11-01-2012 Basophils (Bld) [#/Vol] 0.0 {x10E3/uL} Normal 0.0-0.2 [facility] Work Phone: Comment on above: PATIENT NOT FASTINGP ERFORMED BY: SHANNON LabCo Aciogp[address] [facility] [id number] Information: [id number] Basophils (Bld) [#/Vol] 0.0 10*3/uL Normal 0.0-0.2 [facility]; [facility] Internal Medicine Work Phone: Comment on above: PATIENT NOT FASTINGP ERFORMED BY: SHANNON Cleary Bsidgh7[address] [facility] [id number] Information: [id number] Basophils/100 WBC (Bld) 1 % Normal 0-3 [facility] Work Phone: Comment on above: PATIENT NOT FASTINGP ERFORMED BY: SHANNON Umanzorlin[address] [facility] [id number] Information: [id number] Eosinophils (Bld) [#/Vol] 0.2 {x10E3/uL} Normal 0.0-0.4 [facility] Work Phone: Comment on above: PATIENT NOT FASTINGP ERFORMED BY: SHANNON [facility] [facility] [id number] Information: [id number] Eosinophils (Bld) [#/Vol] 0.2 10*3/uL Normal 0.0-0.4 [facility]; [facility] Work Phone: Comment on above: PATIENT NOT FASTINGP ERFORMED BY: [facility] [facility] [id number] Information: [id number] Eosinophils/100 WBC (Bld) 3 % Normal 0-7 [facility] Work Phone: Comment on above: PATIENT NOT FASTINGP ERFORMED BY: SHANNON Massey[address] [facility] [id number] Information: [id number] Erythrocyte distribution width (RBC) [Ratio] 14.7 % Normal 12.3-15.4 [facility] Work Phone: Comment on above: PATIENT NOT FASTINGP ERFORMED BY: SHANNON [address] [id number] Information: [id number] Hematocrit (Bld) [Volume fraction] 39.0 % Normal 34.0-46.6 [facility] Work Phone: Comment on above: PATIENT NOT FASTINGP ERFORMED BY: [address] [id number] Information: [id number] Hemoglobin (Bld) [Mass/Vol] 12.6 g/dL Normal 11.1-15.9 [facility] Work Phone: Comment on above: PATIENT NOT FASTINGP ERFORMED BY: SHANNON Cleary Trruad[address] [facility] [id number] Information: [id number] Immature granulocytes (Bld) [#/Vol] 0.0 {x10E3/uL} Normal 0.0-0.1 [facility] Work Phone: Comment on above: PATIENT NOT FASTINGP ERFORMED BY: [address] [id number] Information: [id number] Immature granulocytes (Bld) [#/Vol] 0.0 10*3/uL Normal 0.0-0.1 [facility]; [facility] Work Phone: Comment on above: PATIENT NOT FASTINGP ERFORMED BY: SHANNON [address] [id number] Information: [id number] Immature granulocytes/100 WBC (Bld) 0 % Normal 0-2 [facility] Work Phone: Comment on above: PATIENT NOT FASTINGP ERFORMED BY: SHANNON Massey[address] [facility] [id number] Information: [id number] Lymphocytes (Bld) [#/Vol] 1.3 {x10E3/uL} Normal 0.7-4.5 [facility] Work Phone: Comment on above: PATIENT NOT FASTINGP ERFORMED BY: SHANNON LabCoKatherine Ville [address]45[address] [facility] [id number] Information: [id number] Lymphocytes (Bld) [#/Vol] 1.3 10*3/uL Normal 0.7-4.5 [facility]; [facility] Work Phone: Comment on above: PATIENT NOT FASTINGP ERFORMED BY: SHANNON LabCo Gtkiqo[address] [facility] [id number] Information: [id number] Lymphocytes/100 WBC (Bld) 21 % Normal 14-46 [facility] Work Phone: Comment on above: PATIENT NOT FASTINGP ERFORMED BY: SHANNON LabCo Bvdjxs[address] [facility] [id number] Information: [id number] MCH (RBC) [Entitic mass] 29.5 pg Normal 26.6-33.0 [facility] Internal Medicine Work Phone: Comment on above: PATIENT NOT FASTINGP ERFORMED BY: SHANNON LabCo Warhqe56[address] [facility] [id number] Information: [id number] MCHC (RBC) [Mass/Vol] 32.3 g/dL Normal 31.5-35.7 [facility] Work Phone: Comment on above: PATIENT NOT FASTINGP ERFORMED BY: LabCo Qszsrg9[address] [facility] [id number] Information: [id number] MCV (RBC) [Entitic vol] 91 fL Normal 79-97 [facility] Work Phone: Comment on above: PATIENT NOT FASTINGP ERFORMED BY: SHANNON Massey[address] [facility] [id number] Information: [id number] Monocytes (Bld) [#/Vol] 0.6 {x10E3/uL} Normal 0.1-1.0 [facility] Work Phone: Comment on above: PATIENT NOT FASTINGP ERFORMED BY: SHANNON LabCoKatherine Ville 47445[address] [facility] [id number] Information: [id number] Monocytes (Bld) [#/Vol] 0.6 10*3/uL Normal 0.1-1.0 [facility]; [facility] Work Phone: Comment on above: PATIENT NOT FASTINGP ERFORMED BY: SHANNON LabVikram UmanzorJewljq39[address] [facility] [id number] Information: [id number] Monocytes/100 WBC (Bld) 9 % Normal 4-13 [facility] Work Phone: Comment on above: PATIENT NOT FASTINGP ERFORMED BY: SHANNON LabCo Orzrlw[address] [facility] [id number] Information: [id number] Neutrophils (Bld) [#/Vol] 4.2 {x10E3/uL} Normal 1.8-7.8 [facility] Work Phone: Comment on above: PATIENT NOT FASTINGP ERFORMED BY: SHANNON LabCo Aeyafc[address] [facility] [id number] Information: [id number] Neutrophils (Bld) [#/Vol] 4.2 10*3/uL Normal 1.8-7.8 [facility]; [facility] Work Phone: Comment on above: PATIENT NOT FASTINGP ERFORMED BY: SHANNON LabCo Amsxck045[address] [facility] [id number] Information: [id number] Neutrophils/100 WBC (Bld) 66 % Normal 40-74 [facility] Work Phone: Comment on above: PATIENT NOT FASTINGP ERFORMED BY: SHANNON [facility]sey6[address] [facility] [id number] Information: [id number] Platelets (Bld) [#/Vol] 418 {x10E3/uL} Abnormal 140-415 [facility] Work Phone: Comment on above: PATIENT NOT FASTINGP ERFORMED BY: SHANNON Cleary Mjkctg54[address] [facility] [id number] Information: [id number] Platelets (Bld) [#/Vol] 418 10*3/uL Abnormal 140-415 [facility]; [facility] Internal Medicine Work Phone: Comment on above: PATIENT NOT FASTINGP ERFORMED BY: SHANNON Massey[address] [facility] [id number] Information: [id number] RBC (Bld) [#/Vol] 4.27 {x10E6/uL} Normal 3.77-5.28 [facility] Internal Medicine Work Phone: Comment on above: PATIENT NOT FASTINGP ERFORMED BY: SHANNON Cleary Lbhhkm88[address] [facility] [id number] Information: [id number] RBC (Bld) [#/Vol] 4.27 10*6/uL Normal 3.77-5.28 [facility] Internal Medicine; [facility] Work Phone: Comment on above: PATIENT NOT FASTINGP ERFORMED BY: SHANNON Cleary Hunadh[address] [facility] [id number] Information: [id number] WBC (Bld) [#/Vol] 6.4 {x10E3/uL} Normal 4.0-10.5 [facility] Internal Medicine Work Phone: Comment on above: PATIENT NOT FASTINGP ERFORMED BY: SHANNON [facility] Mnjhlp1731 [address] RoadDublin [place] [id number] Information: [id number] WBC (Bld) [#/Vol] 6.4 10*3/uL Normal 4.0-10.5 [facility] Internal Medicine; [facility] Work Phone: Comment on above: PATIENT NOT FASTINGP ERFORMED BY: SHANNON [facility] Rqhzlm4089 [address] RoadDublin [place] [id number] Information: [id number] Metabolic Panel, Basic (4318 6)Ordered By: Manager Career on 11-01-2012 Calcium [Mass/Vol] 9.5 mg/dL Normal 8.7-10.2 [facility] Internal Medicine Work Phone: Comment on above: PATIENT NOT FASTINGP ERFORMED BY: SHANNON LabCobassam UmanzorXvweff3758 [address] RoadDublin [place] [id number] Chloride [Moles/Vol] 101 mmol/L Normal 97-108 [facility] Work Phone: Comment on above: PATIENT NOT FASTINGP ERFORMED BY: SHANNON LabCobassam UmanzorIlhnwt8568 [address] RoadDublin [place] [id number] CO2 [Moles/Vol] 23 mmol/L Normal 19-28 [facility] Internal Medicine Work Phone: Comment on above: PATIENT NOT FASTINGP ERFORMED BY: SHANNON LabCobassam UmanzorFfytkm6031 [address] RoadDublin [place] [id number] Creatinine [Mass/Vol] 0.67 mg/dL Normal 0.57-1.00 [facility] Work Phone: Comment on above: PATIENT NOT FASTINGP ERFORMED BY: SHANNON [facility] Zkkicd4020 [address] RoadDublin [place] [id number] GFR/1.73 sq M predicted among blacks CKD-EPI (S/P/Bld) [Vol rate/Area] 125 mL/min/1.73 Normal [facility] Work Phone: Comment on above: PATIENT NOT FASTINGP ERFORMED BY: SHANNON [facility] Iffcva7364 [address] RoadDublin [place] [id number] GFR/1.73 sq M predicted among non-blacks CKD-EPI (S/P/Bld) [Vol rate/Area] 108 mL/min/1.73 Normal [facility] Internal Medicine Work Phone: Comment on above: PATIENT NOT FASTINGP ERFORMED BY: CB [facility] Amvspo0580 [address] RoadDublin [place] [id number] Glucose [Mass/Vol] 87 mg/dL Normal 65-99 [facility] Internal Medicine Work Phone: Comment on above: PATIENT NOT FASTINGP ERFORMED BY: CB [facility] Qiqveq0485 [address] RoadDublin [place] [id number] Potassium [Moles/Vol] 4.2 mmol/L Normal 3.5-5.2 [facility] Internal Medicine Work Phone: Comment on above: PATIENT NOT FASTINGP ERFORMED BY: CB [facility] Nytfjb3530 [address] RoadCape Fear [facility]in [place] [id number] Sodium [Moles/Vol] 138 mmol/L Normal 134-144 [facility] Internal Medicine Work Phone: Comment on above: PATIENT NOT FASTINGP ERFORMED BY: CB [facility] Aryvtk0048 [address] RoadCape Fear [facility]in [place] [id number] Urea nitrogen [Mass/Vol] 12 mg/dL Normal 6-24 [facility] Internal Medicine Work Phone: Comment on above: PATIENT NOT FASTINGP ERFORMED BY: CB [facility] Xscjof2210 [address] RoadDuin [place] [id number] Urea nitrogen/Creatinine [Mass ratio] 18 mg/mg Normal 9-23 [facility] Internal Medicine Work Phone: Comment on above: PATIENT NOT FASTINGP ERFORMED BY: CB [facility] Lcboav1389 [address] RoadDublin [place] [id number] TSH ([id number])Ordered By: Blanca Ibrahim on 11-01-2012 TSH Qn 2.220 {uIU/mL} Normal 0.450-4.500 [facility] Internal Medicine Work Phone: Comment on above: PATIENT NOT FASTINGP ERFORMED BY: [facility] Bwgwad5[address] [facility] [id number] Thin prep Pap ([id number])Ordered By: Zora Mims on 07-18-2008 Microscopic observation Other stain Nom (Unsp spec) . Normal Comprehens feliz Internal Medicine Work Phone: Comment on above: Source.............C ervical;EndocervicalLMP / Prev Treat...TLG=[id number]. of containers..01 CYTYC Thin Prep VialPATIENT NOT FASTINGClinical Information: ADD [id number] PERFORMED BY: saperatec [address] [id number] Pathology report final diagnosis Narrative SPRCS Normal Comprehensiv e Internal Medicine Work Phone: Comment on above: NEGATIVE FOR INTRAEP ITHELIAL LESION AND MALIGNANCY.Satisfactory for evaluation. Endocervical and/or squamous metaplasticcells (endocervical component) are present.V72.31 ; Routine gynecological examinationSerafin Pineda, Ash Collector (ASCP) Source.............C ervical;EndocervicalLMP / Prev Treat...YQX=[id number]. of containers..01 CYTYC Thin Prep VialPATIENT NOT FASTINGClinical Information: ADD [id number] PERFORMED BY: saperatec [address] [id number] Thin prep Pap ([id number]) PAPSMR Normal [facility] prehensive Internal Medicine Work Phone: Comment on above: The Pap smear is a s creening test designed to aid in the detection ofpremalignant and malignant conditions of the uterine cervix. It is not adiagnostic procedure and should not be used as the sole means of detectingcervical cancer. Both false-positive and false-negative reports do occur. .The HPV DNA reflex criteria were not met with this specimen resulttherefore, no HPV testing was performed. . Source.............C ervical;EndocervicalLMP / Prev Treat...SYB=[id number]. of containers..01 CYTYC Thin Prep VialPATIENT NOT FASTINGClinical Information: ADD [id number] PERFORMED BY: LabDiverse Energy[address] WR[place] [id number] Vital Signs Date Time Vital Sign Value Performing Clinician Facility 12-04-2024 09:17-0400 Body temperature 97.7 [degF] [employer] PA-C Work Phone: [facility] 12-04-2024 09:17-0400 Body weight 78.47 kg [employer]-C Work Phone: [facility] 12-04-2024 09:17-0400 Diastolic blood pressure 83 mm[Hg] [employer] PA-C Work Phone: [facility] 12-04-2024 09:17-0400 Heart rate 88 /min [employer] Work Phone: [facility] 12-04-2024 09:17-0400 Respiratory rate 16 /min Trish Hills PA-C Work Phone: [facility] 12-04-2024 09:17-0400 SaO2% (BldA) [Mass fraction] 99 % TrishChromatik-C Work Phone: [facility] 12-04-2024 09:17-0400 Systolic blood pressure 138 mm[Hg] 3[employer] PA-C Work Phone: [facility] 01-12-2022 15:37-0400 Body temperature 97.9 [degF] Ayla Older ARMATURE CONNECTOR.AIR DEODORIZER SERVICER Work Phone: [facility] 01-12-2022 15:37-0400 Body weight 74.39 kg Ayla Older ARMATURE CONNECTOR.AIR DEODORIZER SERVICER Work Phone: [facility] 01-12-2022 15:37-0400 Diastolic blood pressure 68 mm[Hg] Ayla Older ARMATURE CONNECTOR.AIR DEODORIZER SERVICER Work Phone: [facility] 01-12-2022 15:37-0400 Heart rate 80 /min Ayla Older ARMATURE CONNECTOR.AIR DEODORIZER SERVICER Work Phone: [facility] 01-12-2022 15:37-0400 Respiratory rate 16 /min Ayla Older ARMATURE CONNECTOR.AIR DEODORIZER SERVICER Work Phone: [facility] 01-12-2022 15:37-0400 Systolic blood pressure 116 mm[Hg] Ayla Older ARMATURE CONNECTOR.AIR DEODORIZER SERVICER Work Phone: [facility] 08-06-2021 09:52-0400 Body height 163.5 cm Nahed Cumberland ARMATURE CONNECTOR.AIR DEODORIZER SERVICER Work Phone: [facility] 08-06-2021 09:52-0400 Body weight 75.3 kg Nahed Cumberland ARMATURE CONNECTOR.AIR DEODORIZER SERVICER Work Phone: [facility] 08-06-2021 09:52-0400 Diastolic blood pressure 66 mm[Hg] Nahed Cumberland ARMATURE CONNECTOR.AIR DEODORIZER SERVICER Work Phone: [facility] 08-06-2021 09:52-0400 Systolic blood pressure 110 mm[Hg] Nahed Cumberland ARMATURE CONNECTOR.AIR DEODORIZER SERVICER Work Phone: [facility] 07-05-2021 09:44-0400 Diastolic blood pressure 80 mm[Hg] Ayla Older ARMATURE CONNECTOR.AIR DEODORIZER SERVICER Work Phone: [facility] 07-05-2021 09:44-0400 Systolic blood pressure 120 mm[Hg] Ayla Older ARMATURE CONNECTOR.AIR DEODORIZER SERVICER Work Phone: [facility] 07-05-2021 09:12-0400 Body height 160 cm Ayla Older ARMATURE CONNECTOR.AIR DEODORIZER SERVICER Work Phone: [facility] 07-05-2021 09:12-0400 Body weight 74.84 kg Ayla Older ARMATURE CONNECTOR.AIR DEODORIZER SERVICER Work Phone: [facility] 07-05-2021 09:12-0400 Heart rate 93 /min Ayla Older ARMATURE CONNECTOR.AIR DEODORIZER SERVICER Work Phone: [facility] 07-05-2021 09:12-0400 Respiratory rate 14 /min Ayla Older ARMATURE CONNECTOR.AIR DEODORIZER SERVICER Work Phone: [facility] 07-05-2021 09:12-0400 SaO2% (BldA) [Mass fraction] 98 % Ayla Older ARMATURE CONNECTOR.AIR DEODORIZER SERVICER Work Phone: [facility] 05-12-2020 08:27-0500 BMI (Body Mass Index) 28.42 kg/m2 [facility] Internal Medicine; [facility] Work Phone: 05-12-2020 08:27-0500 Body weight 70.48 kg [facility]; [facility] Work Phone: 05-12-2020 08:27-0500 BSA (Body Surface Area) 1.72 m2 [facility]; [facility] Work Phone: 05-12-2020 08:27-0500 Height 157.48 cm [facility]; [facility] Work Phone: 01-04-2019 14:59-0400 BMI (Body Mass Index) 28.42 kg/m2 Gabriela Liriano RN [facility] Work Phone: 01-04-2019 14:59-0400 Body weight 70.48 kg Gabriela Liriano RN [facility] Work Phone: 01-04-2019 14:59-0400 BP Diastolic 88 mm[Hg] Gabriela Liriano RN [facility] Work Phone: Comment on above: Patient Position: Sitting; Cuff Location : Left Arm; Cuff Size: Large 01-04-2019 14:59-0400 BP Systolic 142 mm[Hg] Gabriela Liriano RN [facility] Work Phone: Comment on above: Patient Position: Sitting; Cuff Location : Left Arm; Cuff Size: Large 01-04-2019 14:59-0400 BSA (Body Surface Area) 1.72 m2 Gabriela Liriano RN [facility] Work Phone: 01-04-2019 14:59-0400 Height 157.48 cm Gabriela Liriano RN [facility] Work Phone: 01-04-2019 14:59-0400 Pulse (Heart Rate) 99 /min Gabriela Liriano RN [facility] Work Phone: Comment on above: Pattern: Regular 01-04-2019 14:59-0400 Pulse Oximetry 98 % Dee Stevens [facility] Work Phone: Comment on above: Room air 01-04-2019 14:59-0400 Respiratory Rate 18 /min Gabriela Liriano RN [facility] Work Phone: Comment on above: Pattern: Unlabored 01-04-2019 14:59-0400 SaO2% (BldA) [Mass fraction] 98 % Gabriela Liriano RN [facility]; [facility] Work Phone: Comment on above: Room air 07-17-2017 13:54-0400 BMI (Body Mass Index) 29.15 kg/m2 Kit Russell LPN Comprehen sive Internal Medicine Work Phone: 07-17-2017 13:54-0400 Body Temperature 99 [degF] Kit Russell LPN [facility] Work Phone: 07-17-2017 13:54-0400 Body weight 72.29 kg Kit Russell LPN [facility] Work Phone: 07-17-2017 13:54-0400 BP Diastolic 86 mm[Hg] Kit Russell LPN [facility] Work Phone: Comment on above: Patient Position: Sitting; Cuff Location : Left Arm; Cuff Size: Standard 07-17-2017 13:54-0400 BP Systolic 124 mm[Hg] Kit Russell LPN [facility] Work Phone: Comment on above: Patient Position: Sitting; Cuff Location : Left Arm; Cuff Size: Standard 07-17-2017 13:54-0400 BSA (Body Surface Area) 1.74 m2 Kit Russell LPN [facility] Work Phone: 07-17-2017 13:54-0400 Height 157.48 cm Kit Russell LPN [facility] Work Phone: 07-17-2017 13:54-0400 Pulse (Heart Rate) 76 /min Kit Russell LPN Comprehensiv e Internal Medicine Work Phone: Comment on above: Pattern: Regular 07-17-2017 13:54-0400 Pulse Oximetry 97 % Dee Humphreyon [facility] Work Phone: Comment on above: Room air 07-17-2017 13:54-0400 Respiratory Rate 17 /min Kit Russell LPN [facility] Work Phone: Comment on above: Pattern: Unlabored 07-17-2017 13:54-0400 SaO2% (BldA) [Mass fraction] 97 % Kit Russell LPN [facility]; [facility] Work Phone: Comment on above: Room air 07-17-2017 13:54-0400 Weight 72.29 kg Dee Humphreyon [facility] Work Phone: 12-04-2015 09:41-0400 BMI (Body Mass Index) 29.15 kg/m2 Gabriela Liriano RN [facility] Work Phone: 12-04-2015 09:41-0400 Body weight 72.29 kg Gabriela Liriano RN [facility] Work Phone: 12-04-2015 09:41-0400 BP Diastolic 78 mm[Hg] Gabriela Liriano RN [facility] Work Phone: Comment on above: Patient Position: Sitting; Cuff Location : Left Arm; Cuff Size: Standard 12-04-2015 09:41-0400 BP Systolic 120 mm[Hg] Gabriela Liriano RN [facility] Work Phone: Comment on above: Patient Position: Sitting; Cuff Location : Left Arm; Cuff Size: Standard 12-04-2015 09:41-0400 BSA (Body Surface Area) 1.74 m2 Gabriela Liriano RN [facility] Work Phone: 12-04-2015 09:41-0400 Height 157.48 cm Gabriela Liriano RN [facility] Work Phone: 12-04-2015 09:41-0400 Pulse (Heart Rate) 71 /min Gabriela Liriano RN [facility] Work Phone: Comment on above: Pattern: Regular 12-04-2015 09:41-0400 Pulse Oximetry 98 % Dee Stevens [facility] Work Phone: Comment on above: Room air 12-04-2015 09:41-0400 Respiratory Rate 18 /min Gabriela Liriano RN [facility] Work Phone: Comment on above: Pattern: Unlabored 12-04-2015 09:41-0400 SaO2% (BldA) [Mass fraction] 98 % Gabriela Liriano RN [facility]; [facility] Work Phone: Comment on above: Room air 12-04-2015 09:41-0400 Weight 72.29 kg Dee Humphreyon [facility] Work Phone: 08-04-2014 15:10-0400 BMI (Body Mass Index) 29.72 kg/m2 Gabriela Liriano RN [facility] Work Phone: 08-04-2014 15:10-0400 Body weight 73.71 kg Gabriela Liriano RN [facility] Work Phone: 08-04-2014 15:10-0400 BP Diastolic 80 mm[Hg] Gabriela Liriano RN [facility] Work Phone: Comment on above: Patient Position: Sitting; Cuff Location : Left Arm; Cuff Size: Large 08-04-2014 15:10-0400 BP Systolic 120 mm[Hg] Gabriela Liriano RN [facility] Work Phone: Comment on above: Patient Position: Sitting; Cuff Location : Left Arm; Cuff Size: Large 08-04-2014 15:10-0400 BSA (Body Surface Area) 1.75 m2 Gabriela Liriano RN [facility] Work Phone: 08-04-2014 15:10-0400 Height 157.48 cm Gabriela Liriano RN [facility] Work Phone: 08-04-2014 15:10-0400 Pulse (Heart Rate) 81 /min Gabriela Liriano RN [facility] Work Phone: Comment on above: Pattern: Regular 08-04-2014 15:10-0400 Pulse Oximetry 98 % Dee Humphreyon [facility] Work Phone: Comment on above: Room air 08-04-2014 15:10-0400 Respiratory Rate 18 /min Gabriela Liriano RN [facility] Work Phone: Comment on above: Pattern: Unlabored 08-04-2014 15:10-0400 SaO2% (BldA) [Mass fraction] 98 % Gabriela Liriano RN [facility]; [facility] Work Phone: Comment on above: Room air 08-04-2014 15:10-0400 Weight 73.71 kg Dee Stevens [facility] Work Phone: 06-03-2013 15:39-0500 BMI (Body Mass Index) 28.74 kg/m2 Gabriela Liriano RN [facility] Work Phone: 06-03-2013 15:39-0500 Body weight 71.27 kg Gabriela Liriano RN [facility] Work Phone: 06-03-2013 15:39-0500 BP Diastolic 70 mm[Hg] Gabriela Liriano RN [facility] Work Phone: Comment on above: Patient Position: Sitting; Cuff Location : Left Arm; Cuff Size: Large 06-03-2013 15:39-0500 BP Systolic 122 mm[Hg] Gabriela Liriano RN [facility] Work Phone: Comment on above: Patient Position: Sitting; Cuff Location : Left Arm; Cuff Size: Large 06-03-2013 15:39-0500 BSA (Body Surface Area) 1.73 m2 Gabriela Liriano RN [facility] Work Phone: 06-03-2013 15:39-0500 Height 157.48 cm Gabriela Liriano RN [facility] Work Phone: 06-03-2013 15:39-0500 Pulse (Heart Rate) 74 /min Gabriela Liriano RN [facility] Work Phone: Comment on above: Pattern: Regular 06-03-2013 15:39-0500 Pulse Oximetry 97 % Dee Stevens [facility] Work Phone: Comment on above: Room air 06-03-2013 15:39-0500 Respiratory Rate 20 /min Gabriela Liriano RN [facility] Work Phone: Comment on above: Pattern: Unlabored 06-03-2013 15:39-0500 SaO2% (BldA) [Mass fraction] 97 % Gabriela Liriano RN [facility]; [facility] Work Phone: Comment on above: Room air 06-03-2013 15:39-0500 Weight 71.27 kg Dee Stevens [facility] Work Phone: 07-02-2012 14:52-0400 BMI (Body Mass Index) 29.14 kg/m2 Gabriela Liriano RN [facility] Work Phone: 07-02-2012 14:52-0400 Body Temperature 97.1 [degF] Gabriela Liriano RN [facility] Work Phone: Comment on above: Method: Oral 07-02-2012 14:52-0400 Body weight 72.26 kg Gabriela Liriano RN [facility] Work Phone: 07-02-2012 14:52-0400 BP Diastolic 82 mm[Hg] Gabriela Liriano RN [facility] Work Phone: Comment on above: Patient Position: Sitting; Cuff Location : Left Arm; Cuff Size: Standard 07-02-2012 14:52-0400 BP Systolic 122 mm[Hg] Gabriela Liriano RN [facility] Work Phone: Comment on above: Patient Position: Sitting; Cuff Location : Left Arm; Cuff Size: Standard 07-02-2012 14:52-0400 BSA (Body Surface Area) 1.74 m2 Gabriela Liriano RN [facility] Work Phone: 07-02-2012 14:52-0400 Height 157.48 cm Gabriela Liriano RN [facility] Work Phone: 07-02-2012 14:52-0400 Pulse (Heart Rate) 104 /min Gabriela Liriano RN [facility] Work Phone: Comment on above: Pattern: Regular 07-02-2012 14:52-0400 Respiratory Rate 18 /min Gabriela Liriano RN [facility] Work Phone: Comment on above: Pattern: Unlabored 07-02-2012 14:52-0400 Weight 72.26 kg Dee Stevens [facility] Work Phone: 06-18-2012 14:46-0500 BMI (Body Mass Index) 29.68 kg/m2 Gabriela Liriano RN [facility] Work Phone: 06-18-2012 14:46-0500 Body Temperature 98.1 [degF] Gabriela Liriano RN [facility] Work Phone: Comment on above: Method: Oral 06-18-2012 14:46-0500 Body weight 73.6 kg Gabriela Liriano RN [facility] Work Phone: 06-18-2012 14:46-0500 BP Diastolic 80 mm[Hg] Gabriela Liriano RN [facility] Work Phone: Comment on above: Patient Position: Sitting; Cuff Location : Left Arm; Cuff Size: Large 06-18-2012 14:46-0500 BP Systolic 122 mm[Hg] Gabriela Liriano RN [facility] Work Phone: Comment on above: Patient Position: Sitting; Cuff Location : Left Arm; Cuff Size: Large 06-18-2012 14:46-0500 BSA (Body Surface Area) 1.75 m2 Gabriela Liriano RN [facility] Work Phone: 06-18-2012 14:46-0500 Height 157.48 cm Gabriela Liriano RN [facility] Work Phone: 06-18-2012 14:46-0500 Pulse (Heart Rate) 60 /min Gabriela Liriano RN [facility] Work Phone: Comment on above: Pattern: Regular 06-18-2012 14:46-0500 Respiratory Rate 18 /min Gabriela Liriano RN [facility] Work Phone: Comment on above: Pattern: Unlabored 06-18-2012 14:46-0500 Weight 73.6 kg Dee Rodney [facility] Work Phone: 05-24-2012 12:15-0500 BMI (Body Mass Index) 29.49 kg/m2 Shilpa Conroy LPN [facility] Work Phone: 05-24-2012 12:15-0500 Body weight 73.14 kg Shilpa Conroy LPN [facility] Work Phone: 05-24-2012 12:15-0500 BP Diastolic 82 mm[Hg] Shilpa Conroy LPN [facility] Work Phone: Comment on above: Patient Position: Sitting; Cuff Location : Left Arm; Cuff Size: Standard 05-24-2012 12:15-0500 BP Systolic 138 mm[Hg] Shilpa Conroy LPN [facility] Work Phone: Comment on above: Patient Position: Sitting; Cuff Location : Left Arm; Cuff Size: Standard 05-24-2012 12:15-0500 BSA (Body Surface Area) 1.74 m2 Shilpa Conroy LPN [facility] Work Phone: 05-24-2012 12:15-0500 Height 157.48 cm Shilpa Conroy LPN [facility] Work Phone: 05-24-2012 12:15-0500 Pulse (Heart Rate) 78 /min Shilpa Conroy LPN [facility] Work Phone: Comment on above: Pattern: Regular 05-24-2012 12:15-0500 Pulse Oximetry 99 % Dee Stevens [facility] Work Phone: Comment on above: Room air 05-24-2012 12:15-0500 Respiratory Rate 17 /min Shilpa Conroy LPN [facility] Work Phone: 05-24-2012 12:15-0500 SaO2% (BldA) [Mass fraction] 99 % Shilpa Conroy LPN [facility]; [facility] Work Phone: Comment on above: Room air 05-24-2012 12:15-0500 Weight 73.14 kg Dee Stevens [facility] Work Phone: 04-05-2011 15:28-0500 BMI (Body Mass Index) 28.75 kg/m2 Tamra Prado [facility] Work Phone: 04-05-2011 15:28-0500 Body Temperature 98 [degF] Tamra Prado [facility] Work Phone: 04-05-2011 15:28-0500 Body weight 73.03 kg Tamra Prado [facility] Work Phone: 04-05-2011 15:28-0500 BP Diastolic 96 mm[Hg] Tamra Canaleskristal [facility] Work Phone: Comment on above: Patient Position: Sitting; Cuff Location : Left Arm; Cuff Size: Large 04-05-2011 15:28-0500 BP Systolic 142 mm[Hg] Tamra Eve [facility] Work Phone: Comment on above: Patient Position: Sitting; Cuff Location : Left Arm; Cuff Size: Large 04-05-2011 15:28-0500 BSA (Body Surface Area) 1.76 m2 Tamra Eve [facility] Work Phone: 04-05-2011 15:28-0500 Height 159.38 cm Tamra Eve [facility] Work Phone: 04-05-2011 15:28-0500 Pulse (Heart Rate) 72 /min Tamra Canaleskristal [facility] Work Phone: Comment on above: Pattern: Regular 04-05-2011 15:28-0500 Respiratory Rate 16 /min Tamra Eve [facility] Work Phone: Comment on above: Pattern: Unlabored 04-05-2011 15:28-0500 Weight 73.03 kg Dee Stevens [facility] Work Phone: 10-12-2009 10:28-0400 Body Temperature 98.4 [degF] Tamra Eve [facility] Work Phone: 10-12-2009 10:28-0400 Body weight 71.67 kg Tamra Eve [facility] Work Phone: 10-12-2009 10:28-0400 BP Diastolic 84 mm[Hg] Tamra Eve [facility] Work Phone: Comment on above: Patient Position: Sitting; Cuff Location : Left Arm; Cuff Size: Standard 10-12-2009 10:28-0400 BP Systolic 136 mm[Hg] Tamra Canaleskristal [facility] Work Phone: Comment on above: Patient Position: Sitting; Cuff Location : Left Arm; Cuff Size: Standard 10-12-2009 10:28-0400 Pulse (Heart Rate) 72 /min Tamra Prado [facility] Work Phone: Comment on above: Pattern: Regular 10-12-2009 10:28-0400 Respiratory Rate 16 /min Tamra Eve [facility] Work Phone: Comment on above: Pattern: Unlabored 10-12-2009 10:28-0400 Weight 71.67 kg Dee Stevens [facility] Work Phone: 07-18-2008 09:47-0400 BMI (Body Mass Index) 27.94 kg/m2 Tamra Eve [facility] Work Phone: 07-18-2008 09:47-0400 Body Temperature 98 [degF] Tamra Eve [facility] Work Phone: Comment on above: Method: Undefined 07-18-2008 09:47-0400 Body weight 72.12 kg Tamra Eve [facility] Work Phone: 07-18-2008 09:47-0400 BP Diastolic 88 mm[Hg] Tamra Eve [facility] Work Phone: Comment on above: Patient Position: Sitting; Cuff Location : Right Arm; Cuff Size: Large 07-18-2008 09:47-0400 BP Systolic 146 mm[Hg] Tamra Eve [facility] Work Phone: Comment on above: Patient Position: Sitting; Cuff Location : Right Arm; Cuff Size: Large 07-18-2008 09:47-0400 BSA (Body Surface Area) 1.76 m2 Tamra Eve [facility] Work Phone: 07-18-2008 09:47-0400 Head Circumference 0 cm Dee Stevens [facility] Work Phone: 07-18-2008 09:47-0400 Head Occipital-frontal circumference 0 cm Tamra Connermushtaq [facility]; [facility] Work Phone: 07-18-2008 09:47-0400 Height 160.66 cm Tamra Prado [facility] Work Phone: 07-18-2008 09:47-0400 Pulse (Heart Rate) 68 /min [facility] Work Phone: Comment on above: Pattern: Regular 07-18-2008 09:47-0400 Respiratory Rate 16 /min Tamra Prado [facility] Work Phone: Comment on above: Pattern: Undefined 07-18-2008 09:47-0400 Weight 72.12 kg Dee Stevens [facility] Work Phone: 07-18-2007 15:29-0400 Body Temperature 97.8 [degF] Monique [facility] Work Phone: Comment on above: Method: Oral 07-18-2007 15:29-0400 Body [facility] Work Phone: 07-18-2007 15:29-0400 BP Diastolic 86 mm[Hg] Monique [facility] Work Phone: Comment on above: Patient Position: Sitting; Cuff Location : Left Arm; Cuff Size: Standard 07-18-2007 15:29-0400 BP Systolic 122 mm[Hg] Monique [facility] Work Phone: Comment on above: Patient Position: Sitting; Cuff Location : Left Arm; Cuff Size: Standard 07-18-2007 15:29-0400 Head Circumference 0 cm Dee Stevens [facility] Work Phone: 07-18-2007 15:29-0400 Head Occipital-frontal circumference 0 cm Monique [facility]; [facility] Work Phone: 07-18-2007 15:29-0400 Height 0 cm Monique [facility] Work Phone: 07-18-2007 15:29-0400 Pulse (Heart Rate) 82 /min Monique Clark [facility] Work Phone: Comment on above: Pattern: Regular 07-18-2007 15:29-0400 Respiratory Rate 16 /min Monique Clark [facility] Work Phone: Comment on above: Pattern: Unlabored 07-18-2007 15:29-0400 Weight 0 kg Dee Stevens [facility] Work Phone: 06-18-2007 16:03-0500 Body weight 75.3 kg Tamra Eve [facility] Work Phone: 06-18-2007 16:03-0500 BP Diastolic 70 mm[Hg] Tamra Prado [facility] Work Phone: Comment on above: Patient Position: Sitting; Cuff Location : Left Arm; Cuff Size: Standard 06-18-2007 16:03-0500 BP Systolic 148 mm[Hg] Tamra Prado [facility] Work Phone: Comment on above: Patient Position: Sitting; Cuff Location : Left Arm; Cuff Size: Standard 06-18-2007 16:03-0500 Head Circumference 0 cm Dee Stevens [facility] Work Phone: 06-18-2007 16:03-0500 Head Occipital-frontal circumference 0 cm Tamra Prado [facility]; [facility] Work Phone: 06-18-2007 16:03-0500 Height 0 cm Tamra Prado [facility] Work Phone: 06-18-2007 16:03-0500 Pulse (Heart Rate) 96 /min Tamra Prado [facility] Work Phone: Comment on above: Pattern: Regular 06-18-2007 16:03-0500 Respiratory Rate 16 /min Tamra Prado [facility] Work Phone: Comment on above: Pattern: Undefined 06-18-2007 16:03-0500 Weight 75.3 kg Dee Stevens [facility] Work Phone: 03-14-2007 10:46-0500 Body Temperature 98.6 [degF] Shilpa Conroy LPN [facility] Work Phone: Comment on above: Method: Oral 03-14-2007 10:46-0500 Body weight 70.76 kg Shilpa Conroy LPN [facility] Work Phone: 03-14-2007 10:46-0500 BP Diastolic 78 mm[Hg] Shilpa Conroy LPN [facility] Work Phone: Comment on above: Patient Position: Sitting; Cuff Location : Left Arm; Cuff Size: Standard 03-14-2007 10:46-0500 BP Systolic 120 mm[Hg] Shilpa Conroy LPN [facility] Work Phone: Comment on above: Patient Position: Sitting; Cuff Location : Left Arm; Cuff Size: Standard 03-14-2007 10:46-0500 Head Circumference 0 cm Dee Stevens [facility] Work Phone: 03-14-2007 10:46-0500 Head Occipital-frontal circumference 0 cm Shilpa Conroy LPN [facility]; [facility] Work Phone: 03-14-2007 10:46-0500 Height 0 cm Shilpa Conroy LPN [facility] Work Phone: 03-14-2007 10:46-0500 Pulse (Heart Rate) 82 /min Shilpa Conroy LPN [facility] Work Phone: Comment on above: Pattern: Regular 03-14-2007 10:46-0500 Respiratory Rate 17 /min Shilpa Conroy LPN [facility] Work Phone: Comment on above: Pattern: Unlabored 03-14-2007 10:46-0500 Weight 70.76 kg Dee Stevens [facility] Work Phone: 06-12-2006 17:06-0500 Body Temperature 98.1 [degF] Apryl Rudolph RN [facility] Work Phone: Comment on above: Method: Oral 06-12-2006 17:06-0500 Body weight 70.76 kg Apryl Rudolph RN [facility] Work Phone: 06-12-2006 17:06-0500 BP Diastolic 80 mm[Hg] Apryl Rudolph RN [facility] Work Phone: Comment on above: Patient Position: Sitting; Cuff Location : Right Arm; Cuff Size: Standard 06-12-2006 17:06-0500 BP Systolic 116 mm[Hg] Apryl Rudolph RN [facility] Work Phone: Comment on above: Patient Position: Sitting; Cuff Location : Right Arm; Cuff Size: Standard 06-12-2006 17:06-0500 Head Circumference 0 cm Dee Stevens [facility] Work Phone: 06-12-2006 17:06-0500 Head Occipital-frontal circumference 0 cm Apryl Rudolph RN [facility]; [facility] Work Phone: 06-12-2006 17:06-0500 Height 0 cm pAryl Rudolph RN [facility] Work Phone: 06-12-2006 17:06-0500 Pulse (Heart Rate) 72 /min Apryl Rudolph [facility] Work Phone: Comment on above: Pattern: Regular 06-12-2006 17:06-0500 Respiratory Rate 16 /min Apryl Rudolph RN [facility] Work Phone: Comment on above: Pattern: Unlabored 06-12-2006 17:06-0500 Weight 70.76 kg Dee Rodney [facility] Work Phone: 05-23-2006 16:08-0500 BMI (Body Mass Index) 27.79 kg/m2 Tamra Prado [facility] Work Phone: 05-23-2006 16:08-0500 Body Temperature 98.9 [degF] Tamra Prado [facility] Work Phone: Comment on above: Method: Oral 05-23-2006 16:08-0500 Body weight 71.73 kg Tamra Prado [facility] Work Phone: 05-23-2006 16:08-0500 BP Diastolic 76 mm[Hg] Tamra Canaleskristal [facility] Work Phone: Comment on above: Patient Position: Sitting; Cuff Location : Right Arm; Cuff Size: Standard 05-23-2006 16:08-0500 BP Systolic 142 mm[Hg] Tamra Connermushtaq [facility] Work Phone: Comment on above: Patient Position: Sitting; Cuff Location : Right Arm; Cuff Size: Standard 05-23-2006 16:08-0500 BSA (Body Surface Area) 1.76 m2 Tamra Eve [facility] Work Phone: 05-23-2006 16:08-0500 Head Circumference 0 cm Dee Stevens [facility] Work Phone: 05-23-2006 16:08-0500 Head Occipital-frontal circumference 0 cm Tamra Eve [facility]; [facility] Work Phone: 05-23-2006 16:08-0500 Height 160.66 cm Tamra Eve [facility] Work Phone: 05-23-2006 16:08-0500 Pulse (Heart Rate) 88 /min Tamra Eve [facility] Work Phone: Comment on above: Pattern: Regular 05-23-2006 16:08-0500 Respiratory Rate 16 /min Tamra Eve [facility] Work Phone: Comment on above: Pattern: Unlabored 05-23-2006 16:08-0500 Weight 71.73 kg Dee Stevens [facility] Work Phone: Encounters Encounter Date Encounter Type Care Provider Facility Start: 12-04-2024 End: 12-04-2024 ambulatory Elvie Campos Facility:[facility] [place] Start: 12-04-2024 End: 12-04-2024 [facility] Start: 10-31-2024 End: 10-31-2024 ambulatory Trish Fairbanks PA-C Work Phone: -Laboratory Start: 10-31-2024 End: 10-31-2024 Patient encounter procedure [facility] PA-C -Laboratory Work Phone: Start: 10-31-2024 End: 10-31-2024 ambulatory Trish [facility] Facility:[facility] Start: 07-15-2023 ambulatory Jaelyn Ivey oriana [facility] [place] Start: 01-12-2022 End: 01-12-2022 Patient encounter procedure Ayla Older [employer]CTOR.AIR DEOD[employer]IZER SERVICER Work Phone: [facility] [place] Comment on above: Primary hypertension (Primary Dx) Start: 09-16-2021 Refill Az white MD Work Phone: [facility] [place] Comment on above: Refill Request Start: 08-11-2021 Documentation procedure Mammog jeffy Coordinator [facility] Start: 08-11-2021 Letter encounter Mammography Coordinator [facility] Department Start: 08-06-2021 End: 08-06-2021 Patient encounter procedure Nahed Maynard APRN.AIR DEODORIZER SERVICER Work Phone: OB/Gynecology Comment on above: Encounter for gyneco logical examination without abnormal finding (Primary Dx); Encounter for screening mammogram for malignant neoplasm of breast Start: 08-06-2021 End: 08-06-2021 Patient encounter status Nahed Alanizcalf [employer]URE CONNECTOR.AIR DEODORIZER SERVICER Work Phone: OB/Gynecology Start: 08-06-2021 End: 08-06-2021 Subsequent hospital visit by physician Screen Mammo [facility] M[facility] Comment on above: Encounter for screen ing mammogram for breast cancer [Z12.31] Start: 07-05-2021 End: 07-05-2021 Patient encounter procedure Ayla Older [employer]CTOR.AIR DEODORIZER SERVICER Work Phone: [facility] [place] Comment on above: Well adult exam (Deepthi olya Dx); Primary hypertension; Overweight (BMI 25.0-29.9); Encounter for screening mammogram for breast cancer; Screening for lipid disorders; Special screening examination for viral disease; Screening for HIV (human immunodeficiency virus) Start: 07-05-2021 End: 07-05-2021 Patient encounter status Ayla Older [employer]CTOR.AIR DEOD[employer]IZER SERVICER Work Phone: [facility] [place] Start: 05-12-2020 End: 05-12-2020 Office outpatient visit 25 minutes Dee Rodney [facility] Start: 01-04-2019 End: 01-04-2019 Office outpatient visit 25 minutes Dee Rodney [facility] Start: 01-02-2019 End: 01-02-2019 Phone Encounter Deepaolo Humphreyon [facility] Start: 07-17-2017 End: 07-17-2017 Patient encounter procedure Deepaolo Humphreyon [facility] Start: 07-17-2017 End: 07-17-2017 Office outpatient visit 15 minutes Dee Rodney [facility] Start: 12-04-2015 End: 12-04-2015 Office outpatient visit 25 minutes Dee Stevens [facility] Start: 08-04-2014 End: 08-04-2014 Office outpatient visit 15 minutes Dee Rodney [facility] Start: 06-03-2013 End: 06-03-2013 Patient encounter procedure Dee Stevens [facility] Start: 10-31-2012 End: 10-31-2012 Phone Encounter Dee Rodney [facility] Start: 07-12-2012 End: 07-25-2012 Phone Encounter Dee Rodney [facility] Start: 07-11-2012 End: 07-11-2012 Phone Encounter Deepaolo Humphreyon [facility] Start: 07-02-2012 End: 07-02-2012 Patient encounter procedure Dee Rodney [facility] Start: 06-18-2012 End: 06-18-2012 Patient encounter procedure Dee Stevens [facility] Start: 05-24-2012 End: 05-24-2012 Patient encounter procedure Dee Stevens [facility] Start: 04-05-2011 End: 04-06-2011 Patient encounter procedure Dee Stevens [facility] Start: 03-23-2011 End: 03-23-2011 Definitive Diagnosis Pending Dee [facility] Start: 10-12-2009 End: 10-12-2009 Patient encounter procedure Manager Career [facility] Start: 07-18-2008 End: 07-18-2008 Patient encounter procedure Dee Stevens [facility] Start: 02-27-2008 End: 02-27-2008 Patient encounter procedure Dee Stevens [facility] Start: 07-18-2007 End: 07-19-2007 Patient encounter procedure Dee Stevens [facility] Start: 06-18-2007 End: 06-18-2007 Patient encounter procedure Dee Stevens [facility] Start: 03-14-2007 End: 03-14-2007 Office outpatient visit 10 minutes Dee Stevens [facility] Start: 06-12-2006 End: 06-12-2006 Patient encounter procedure Dee Stevens [facility] Start: 05-23-2006 End: 05-23-2006 Office outpatient visit 25 minutes Dee Stevens [facility] Start: 04-10-2006 End: 04-10-2006 Historical Summary Dee Stevens [facility] Procedures Date Procedure Procedure Detail Performing Clinician Start: 08-06-2021 Lipid 1996 panel - Serum or Plasma Jaelyn Chaudhari LPN Start: 08-06-2021 End: 08-06-2021 Mammography Ayla Older [employer]ER SERVICER Work Phone: Start: 07-05-2021 Adult depression screening assessment Ayla Older [employer]CTOR.AIR DE[employer]IZER SERVICER Work Phone: Start: 03-02-2019 End: 03-04-2019 SCREEN MAMM (CAD) W/MILA BILAT Comments: See Note; NOTES: [facility] [address] [place] [id number] SCREEN MAMM (CAD) W/MILA BILAT MR#: [id number] Acct: [id number] Name: CASI EDWARDS Rep #: [id number] : 1970 F 48 From: Phillip Zaidi MD PCP: Dee Stevens DO Status: REG CLI Study: SCREEN MAMM (CAD) W/MILA BILAT Date of Exam: 03/02/19 Exam# [id number] Ordering Dr: Dee Stevens DO MAMMOGRAPHY - BILATERAL SCREENING REASON FOR EXAM: Female, 48 years old. Routine annual screening examination. PERTINENT HISTORY: Grandmother with breast cancer. Prior bilateral breast reduction surgery. TECHNIQUE: Digital bilateral breast mila (3D mammographic acquisition) in the CC and MLO projections. 2-D mediolateral oblique (MLO) and craniocaudad (CC) views of both breasts were obtained. CAD: Full Field Digital Mammography with Computer Added Detection was performed. COMPARISON: Comparison is made with prior examination dated March 25, 2016. FINDINGS: Breast Composition: The breasts are heterogeneously dense, which may obscure small masses. There are no dominant masses or suspicious calcifications. No other significant abnormalities are identified. There has been no significant change since the prior study. BI/SCREEN MAMM (CAD) W/MILA BILAT IMPRESSION: Stable bilateral screening mammogram. Yearly follow-up mammogram recommended. (A) ASSESSMENT CATEGORY: BIRADS Category 1: Negative. A letter regarding these results will be sent to the patient by the facility within 30 days. Approximately 10% of breast cancers are not detected by mammography. A normal mammogram should not delay biopsy of a clinically suspicious abnormality. [id number] Electronically Signed: Phillip Zaidi, at 8:44 EST , Service support , CC: Dee Stevens DO Fusion Analyst: Signed Dee Stevens Work Phone: Start: 03-25-2016 End: 03-28-2016 Bilat Scrn Digital AND CAD Comments: See Note; NOTES: [facility] [address] [place] [id number] Verdana 4d Bilat Scrn Digital AND CAD MR#: [id number] Acct: [id number] Name: CASI EDWARDS Rep #: [id number] : 1970 F 45 From: Phillip Zaidi MD PCP: Dee Stevens DO Status: [facility] CLI Study: Bilat Scrn Digital AND CAD Date of Exam: 03/25/16 Exam# [id number] Ordering Dr: Dee Stevens DO MAMMOGRAPHY - BILATERAL SCREENING REASON FOR EXAM: Female, 45 years old. Routine annual screening examination. PERTINENT HISTORY: Grandmother with breast cancer. History of prior bilateral breast reduction surgery. TECHNIQUE: Digital bilateral breast mila (3D mammographic acquisition) in the CC and MLO projections. 2-D mediolateral oblique (MLO) and craniocaudad (CC) views of both breasts were obtained. CAD: Full Field Digital Mammography with Computer Added Detection was performed. COMPARISON: Comparison is made with prior outside examination dated July 03, 2007 and July 10, 2007. FINDINGS: Breast Composition: The breasts are heterogeneously dense, which may obscure small masses. There are no dominant masses or suspicious calcifications. No other significant abnormalities are identified. There has been no significant change since the prior study. [facility] AND CAD IMPRESSION: Stable bilateral screening mammogram. Yearly follow-up mammogram recommended. (A) ASSESSMENT CATEGORY: BIRADS Category 1: Negative. A letter regarding these results will be sent to the patient by the facility within 30 days. Approximately 10% of breast cancers are not detected by mammography. A normal mammogram should not delay biopsy of a clinically suspicious abnormality. [id number] Electronically Signed: Phillip Zaidi MD at 8:00 EST Tel [phone], Service support [phone], CC: Dee Stevens DO Fusion Analyst: Signed Dee Stevens Work Phone: Start: 12-04-2015 End: 12-04-2015 Ecg routine ecg w/least 12 lds w/i&r [MEASUREMENTS ANALYSIS] Date of Test: 12/04/2015 10:42:30; Heart Rate: 63; [place] Interval: 174; QRS: 86; QT Interval: 396; Corrected QT Interval (QTc): 401; P Wave Warren: 38; QRS Wave Warren: 31; T Wave Warren: 53; Blood Pressure: 120/78 [ECG DIAGNOSTIC STATEMENTS] Date of Test: 12/04/2015 10:42:30; Summary: Sinus Rhythm WITHIN NORMAL LIMITS Dee Stevens Work Phone: Comment on above: nsr no acute chg H/O: hysterectomy History of par tial hysterectomy Nina Sheth [employer]ENTICE Comment on above: done for uterine fib riods - one ovary remaining Hysterectomy (due to cancer) - Partial Kit Delarosa Comment on above: 08/04 Hysterectomy (due to cancer) - Partial Gabriela Liriano Comment on above: 08/04 Partial hysterectomy Gabriela gonsalez Comment on above: 08/04 Partial hysterectomy Nina Sheth Comment on above: 08/04 Plan of Treatment Date Care Activity Detail Author Start: 08-06-2026 Lipid panel Lipid Screening [facility] Start: 08-06-2026 LIPID SCREEN LIPID SCREEN [facility] Start: 08-06-2024 DIABETES SCREEN DIABETES SCREEN [facility] Start: 08-06-2024 Diabetes Screening Diabetes Screening [facility] Start: 04-24-2023 Depression Assessment Depression Assessment [facility] Start: 01-12-2023 ANNUAL PCP TEAM CHRONIC DISEASE VISIT ANNUAL PCP TEAM CHRONIC DISEASE VISIT [facility] Start: 01-12-2023 BP CONTROLLED (<130/80) BP CONTROLLED (<130/80) [facility] Start: 01-12-2023 HEPATITIS B (1 of 3 - 3-dose series) HEPATITIS B (1 of 3 - 3-dose series) [facility] Comment on above: Postponed from 1970 (Declined at t his time) Start: 12-23-2022 Covid-19 Vaccine ( season) Covid-19 Vaccine ( season) [facility] Start: 12-23-2022 Influenza vaccination Influenza Vaccine (#1) [facility] Start: 10-21-2022 Influenza vaccination INFLUENZA (#1) [facility] Comment on above: Postponed from 12/23/2021 (Declined at t his time) Start: 08-06-2022 BP CONTROLLED (<130/80) BP CONTROLLED (<130/80) [facility] Start: 04-15-2023 Mammography MAMMOGRAM [facility] Start: 08-06-2022 Screening for malignant neoplasm of breast Mammogram Screening [facility] Start: 07-05-2022 Adult depression screening assessment DEPRESSION SCREENING [facility] Start: 07-05-2022 ANNUAL PCP TEAM CHRONIC DISEASE VISIT ANNUAL PCP TEAM CHRONIC DISEASE VISIT [facility] Start: 07-05-2022 BP CONTROLLED (<130/80) BP CONTROLLED (<130/80) [facility] Start: 07-05-2022 COVID-19 VACCINE (2 - Moderna 3-dose series) COVID-19 VACCINE (2 - Moderna 3-dose series) [facility] Comment on above: Postponed from 06/22/2020 (Declined at t his time) Start: 07-05-2022 COVID-19 VACCINE (2 - Moderna series) COVID-19 VACCINE (2 - Moderna series) [facility] Comment on above: Postponed from 06/22/2020 (Declined at t his time) Start: 07-05-2022 SHINGRIX VACCINE (1 of 2) SHINGRIX VACCINE (1 of 2) [facility] Comment on above: Postponed from 10/26/2019 (Declined at t his time) Start: 07-05-2022 Urine microalbumin profile DTAP,TDAP,TD (1 - Tdap) [facility] Comment on above: Postponed from 1988 (Declined at t his time) Start: 12-23-2021 [facility] Start: 10-21-2021 Influenza vaccination INFLUENZA (#1) [facility] Comment on above: Postponed from 12/23/2020 (Declined at t his time) Start: 07-05-2021 End: 09-04-2021 Comprehensive metabolic 2000 panel - Serum or Plasma COMP METABOLIC PANEL Lab Routine Well adult exam Expected: 07/05/2021, Expires: 09/04/[address] [facility] Work Phone: Comment on above: Expected: 07/05/2021, Expires: Start: 07-05-2021 End: 09-04-2021 Hepatitis C virus Ab [Presence] in Serum HEP C AB IA W/CONF SCRN Lab Routine Special screening examination for viral disease Expected: 07/05/2021, Expires: 09/04/[address] [facility] Work Phone: Comment on above: Expected: 07/05/2021, Expires: 2 Start: 07-05-2021 End: 09-04-2021 HIV 1+2 Ab [Presence] in Serum or Plasma by Immunoassay HIV 1 2 COMBO(AG/AB),WITH REFLEX TO DIFFERENTIATION Lab Routine Screening for HIV (human immunodeficiency virus) Expected: 07/05/2021, Expires: 09/04/[address] [facility] Work Phone: Comment on above: Expected: 07/05/2021, Expires: 2 Start: 07-05-2021 End: 09-04-2021 LIPID PANEL BASIC LIPID PANEL BASIC Lab Routine Screening for lipid disorders Well adult exam Expected: 07/05/2021, Expires: 09/04/[address] [facility] Work Phone: Comment on above: Expected: 07/05/2021, Expires: 2 Start: 05-12-2020 Procedure Education Eprescribed prescriptions (G8553) [facility]; [facility] Work Phone: Start: 05-12-2020 Provider Instructions for Treatment [facility]; [facility] Work Phone: Start: 05-12-2020 25 hydroxy includes fractions if performed CALCIFEDIOL (83774) [facility]; [facility] Work Phone: Start: 05-12-2020 Assay of thyroid stimulating hormone tsh TSH (34826) [facility]; [facility] Work Phone: Start: 05-12-2020 TSH Qn TSH (26514) [facility] Work Phone: Start: 05-12-2020 Urnls dip stick/tablet reagent auto microscopy URINALYSIS, W/ MICRO (37641) [facility]; [facility] Work Phone: Start: 05-12-2020 Urine albumin quantitative MICROALBUMIN: CREATININE RATIO (91964) AND (72155) [facility]; [facility] Work Phone: Start: 05-12-2020 Comprehensive metabolic panel METABOLIC PANEL, COMPREHENSIVE (95856) [facility]; [facility] Work Phone: Start: 05-12-2020 Lipid panel LIPID PANEL (58603) [facility]; [facility] Work Phone: Start: 05-12-2020 Blood count complete auto&auto difrntl wbc CBC W/AUTO DIFF WBC (19844) [facility]; [facility] Work Phone: Start: 10-26-2019 Shingrix Vaccine (1 of 2) Shingrix Vaccine (1 of 2) [facility] Start: 01-04-2019 25 hydroxy includes fractions if performed CALCIFIDIOL (84969) VIT D 25 [facility] Work Phone: Start: 01-04-2019 Lipoprotein blood don numbers & subclasses NMR Profile (72746) [facility] Work Phone: Start: 01-04-2019 Urnls dip stick/tablet reagent auto microscopy URINALYSIS, W/ MICRO (42509) [facility] Work Phone: Start: 01-04-2019 Urine albumin quantitative MICROALBUMIN: CREATININE RATIO (77951) AND (79960) [facility] Work Phone: Start: 01-04-2019 Comprehensive metabolic panel METABOLIC PANEL, COMPREHENSIVE (16862) [facility] Work Phone: Start: 01-04-2019 Blood count complete auto&auto difrntl wbc CBC W/AUTO DIFF WBC (54411) [facility] Work Phone: Start: 01-04-2019 Provider Instructions for Treatment [facility] Work Phone: Start: 07-17-2017 Iaadiadoo streptococcus group a Rapid Strep Test, Office (08913) [facility]; [facility] Work Phone: Start: 07-17-2017 S. pyogenes Ag IA Ql (Unsp spec) Rapid Strep Test, Office (08389) [facility] Work Phone: Start: 07-17-2017 Procedure Education Eprescribed prescriptions (G8553) [facility] Work Phone: Start: 07-17-2017 Provider Instructions for Treatment [facility] Work Phone: Start: 12-04-2015 Procedure Education Eprescribed prescriptions (G8553) [facility] Work Phone: Start: 12-04-2015 Provider Instructions for Treatment [facility] Work Phone: Start: 2014 COLOGUARD (FIT-DNA) COLOGUARD (FIT-DNA) [facility] Start: 2014 Colonoscopy COLONOSCOPY [facility] Start: 2014 COLORECTAL CANCER SCREENING COLORECTAL CANCER SCREENING [facility] Start: [address] COLONOGRAPHY [facility] Start: 2014 DIABETES SCREEN DIABETES SCREEN [facility] Start: 2014 FECAL OCCULT BLOOD FECAL OCCULT BLOOD [facility] Start: 2014 LIPID SCREEN LIPID SCREEN [facility] Start: 2014 Screening for malignant neoplasm of colon [facility] Start: 2014 SIGMOIDOSCOPY SIGMOIDOSCOPY [facility] Start: 08-04-2014 25 hydroxy includes fractions if performed Vitamin D Hydroxy (27432) [facility] Work Phone: Start: 08-04-2014 Assay of thyroid stimulating hormone tsh TSH (20934) [facility]; [facility] Work Phone: Start: 08-04-2014 Thyrotropin Qn TSH (95231) [facility] Work Phone: Start: 08-04-2014 Urnls dip stick/tablet reagent auto microscopy URINALYSIS, W/ MICRO (58009) [facility] Work Phone: Start: 08-04-2014 Urine albumin quantitative MICROALBUMIN: CREATININE RATIO (65748) AND (87482) [facility] Work Phone: Start: 08-04-2014 Comprehensive metabolic panel METABOLIC PANEL, COMPREHENSIVE (53119) [facility] Work Phone: Start: 08-04-2014 Lipid panel LIPID PANEL (59624) [facility] Work Phone: Start: 08-04-2014 Blood count complete auto&auto difrntl wbc CBC W/AUTO DIFF WBC (69735) [facility] Work Phone: Start: 08-04-2014 Procedure Education Eprescribed prescriptions (G8553) [facility] Work Phone: Start: 08-04-2014 Provider Instructions for Treatment [facility] Work Phone: Start: 06-03-2013 Assay of thyroid stimulating hormone tsh TSH (91549) [facility]; [facility] Work Phone: Start: 06-03-2013 Thyrotropin Qn TSH (44797) [facility] Work Phone: Start: 06-03-2013 Urnls dip stick/tablet reagent auto microscopy URINALYSIS, W/ MICRO (53776) [facility] Work Phone: Start: 06-03-2013 Urine albumin quantitative MICROALBUMIN: CREATININE RATIO (56567) AND (26724) [facility] Work Phone: Start: 06-03-2013 Comprehensive metabolic panel METABOLIC PANEL, COMPREHENSIVE (28565) [facility] Work Phone: Start: 06-03-2013 Lipid panel LIPID PANEL (19879) [facility] Work Phone: Start: 06-03-2013 Blood count manual cell count each CBC WITH MANUAL DIFF (70933) [facility] Work Phone: Start: 06-03-2013 Provider Instructions for Treatment Follow up in 6 months [facility] Work Phone: Start: 07-02-2012 Provider Instructions for Treatment [facility] Work Phone: Start: 06-18-2012 Provider Instructions for Treatment [facility] Work Phone: Start: 06-07-2012 Basic metabolic panel calcium total Metabolic Panel, Basic (65795) [facility] Work Phone: Start: 05-24-2012 Provider Instructions for Treatment Follow up in 3 weeks [facility] Work Phone: Start: 04-05-2011 Assay of prolactin PROLACTIN (07035) [facility] Work Phone: Start: 04-05-2011 Protein mass conc PROLACTIN (35853) [facility] Work Phone: Start: 04-05-2011 25 hydroxy includes fractions if performed Vitamin D Hydroxy (77159) [facility] Work Phone: Start: 04-05-2011 Assay of parathormone PARATHORMONE (32908) [facility] Work Phone: Start: 04-05-2011 Calcium mass conc CALCIUM SERUM (53896) [facility] Work Phone: Start: 04-05-2011 Calcium total CALCIUM SERUM (90893) [facility] Work Phone: Start: 04-05-2011 Provider Instructions for Treatment Diet, Exercise, and Wt loss [facility] Work Phone: Start: 03-23-2011 Assay of thyroid stimulating hormone tsh TSH (39490) [facility]; [facility] Work Phone: Start: 03-23-2011 Thyrotropin Qn TSH (16276) [facility] Work Phone: Start: 03-23-2011 Urinalysis qual/semiquant except immunoassays URINALYSIS (24906) [facility] Work Phone: Start: 03-23-2011 Blood count manual cell count each CBC with manual diff (91059) [facility] Work Phone: Start: 03-23-2011 Comprehensive metabolic panel Metabolic Panel, Comprehensive (90252) [facility] Work Phone: Start: 03-23-2011 Lipid panel Lipid Panel (62891) [facility] Work Phone: Start: 2009 Mammography MAMMOGRAM [facility] Start: 10-12-2009 Lipid panel LIPID PANEL (75233) [facility] Work Phone: Start: 10-12-2009 Urnls dip stick/tablet reagent auto microscopy URINALYSIS, W/ MICRO (61189) [facility] Work Phone: Start: 10-12-2009 Blood count manual cell count each CBC WITH MANUAL DIFF (55945) [facility] Work Phone: Start: 10-12-2009 Comprehensive metabolic panel METABOLIC PANEL, COMPREHENSIVE (85604) [facility] Work Phone: Start: 07-18-2008 Provider Instructions for Treatment [facility] Work Phone: Start: 07-18-2008 Assay of thyroid stimulating hormone tsh TSH (36643) [facility]; [facility] Work Phone: Start: 07-18-2008 Thyrotropin Qn TSH (01655) [facility] Work Phone: Start: 07-18-2008 Urnls dip stick/tablet rgnt auto w/o microscopy URINALYSIS W/O MICRO (09666) [facility] Work Phone: Start: 07-18-2008 Blood count manual cell count each CBC WITH MANUAL DIFF (77076) [facility] Work Phone: Start: 07-18-2008 Comprehensive metabolic panel METABOLIC PANEL, COMPREHENSIVE (17259) [facility] Work Phone: Start: 07-18-2008 Hepatic function panel HEPATIC FUNCTION PANEL (75570) [facility] Work Phone: Start: 07-18-2008 Lipid panel LIPID PANEL (75252) [facility] Work Phone: Start: 07-18-2008 Blood occult fecal hgb deter ia qual feces 1-3 FECAL OCCULT HGB ASSAY- tubes sent home (25072) [facility] Work Phone: Start: 07-18-2008 Blood occult peroxidase actv qual feces 1 deter OCCULT BLOOD FECES SCREEN- card done in office (75397) [facility] Work Phone: Start: 07-19-2007 Provider Instructions for Treatment [facility] Work Phone: Start: 07-18-2007 Urnls dip stick/tablet rgnt auto w/o microscopy URINALYSIS W/O MICRO (21046) [facility] Work Phone: Start: 07-18-2007 Hepatic function panel HEPATIC FUNCTION PANEL (61948) [facility] Work Phone: Start: 07-18-2007 Lipid panel LIPID PANEL (22842) [facility] Work Phone: Start: 06-18-2007 Cytp cerv/vag auto thin layer prep mnl screen Thin prep Pap (34704) [facility] Work Phone: Start: 06-18-2007 Provider Instructions for Treatment [facility] Work Phone: Start: 03-14-2007 Urine albumin quantitative MICROALBUMIN URINE QUANT (49392) [facility] Work Phone: Start: 03-14-2007 Urnls dip stick/tablet reagent auto microscopy URINALYSIS, W/ MICRO (28903) [facility] Work Phone: Start: 03-14-2007 Blood count complete auto&auto difrntl wbc CBC, Platelets & Auto Diff (73746) [facility] Work Phone: Start: 03-14-2007 Lipid panel Lipid Panel (68334) [facility] Work Phone: Start: 03-14-2007 Comprehensive metabolic panel Metabolic Panel, Comprehensive (89679) [facility] Work Phone: Start: 06-12-2006 Cytp cerv/vag auto thin layer prep mnl screen Thin prep Pap (59223) [facility] Work Phone: Start: 06-12-2006 Provider Instructions for Treatment [facility] Work Phone: Start: 05-23-2006 Urnls dip stick/tablet rgnt auto w/o microscopy URINALYSIS W/O MICRO (72631) [facility] Work Phone: Start: 05-23-2006 Assay of thyroid stimulating hormone tsh TSH (32056) [facility]; [facility] Work Phone: Start: 05-23-2006 Thyrotropin Qn TSH (39254) [facility] Work Phone: Start: 05-23-2006 Blood count manual cell count each CBC WITH MANUAL DIFF (22788) [facility] Work Phone: Start: 05-23-2006 Comprehensive metabolic panel METABOLIC PANEL, COMPREHENSIVE (86541) [facility] Work Phone: Start: 05-23-2006 Lipid panel LIPID PANEL (17962) [facility] Work Phone: Comment on above: 6mos Start: 10-26-1999 HPV TESTING HPV TESTING [facility] Start: 1990 PAP TESTING PAP TESTING [facility] Start: 1988 Hepatitis B Vaccine (1 of 3 - 19+ 3-dose series) Hepatitis B Vaccine (1 of 3 - 19+ 3-dose series) [facility] Start: 1988 Urine microalbumin profile DTaP,Tdap,Td Vaccine (1 - Tdap) [facility] Start: 10-26-1987 HEPATITIS C SCREENING HEPATITIS C SCREENING [facility] Start: 10-26-1987 HIV SCREENING HIV SCREENING [facility] End: 08-04-2022 Screening mammography bi 2-view breast inc cad RUDDY SCREENING Radiology Routine Encounter for screening mammogram for breast cancer 1 Occurrences starting 07/05/2021 until 08/04/[address] [facility] Work Phone: Comment on above: 1 Occurrences starting 07/05/2021 until 08/04/2022 End: 09-05-2022 Screening mammography bi 2-view breast inc cad RUDDY SCREENING Radiology Routine Encounter for screening mammogram for malignant neoplasm of breast 1 Occurrences starting 08/06/2021 until 09/05/[address] [facility] Work Phone: Comment on above: 1 Occurrences starting 08/06/2021 until 09/05/2022 [facility] Work Phone: [facility] Work Phone: [facility] Work Phone: [facility] Work Phone: [facility] Work Phone: [facility] Work Phone: [facility] Work Phone[facility] Work Phone: [facility] Work Phone: [facility] Work Phone[facility] Work Phone: [facility] Work Phone: [facility] Work Phone[facility] Work Phone: [facility] Work Phone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 Work Phone: [facility] Work Phone: 02-27-2008 influenza, seasonal, injectable Dee Stevens [facility] Work Phone: Comment on above: Lot #:Expiration kai e:Amount given:Route: IMSite given:left deltoid Given by: johan 03-14-2007 influenza, seasonal, injectable Dee Stevens [facility] Work Phone: Payers Date Payer Category Payer Self-pay 2021 Unknown 2021 Unknown [employer] PPO [id number] 2021-Present [phone] [address] [place] [address] PPO [id number] 2005 Unknown [id number] Unknown [id number] Unknown [id number] Social History Date Type Detail Facility Start: 07-05-2021 End: 01-12-2022 Alcohol Use Never smoker [facility] Work Phone: Comment on above: Occasional alcohol u se 3-4 QD Tobacco use: Never smoker. [facility] Work Phone: Tobacco use: Tobacco use: [facility] Work Phone: Start: 08-16-2014 Tobacco smoking stat us RUST Never smoked tobacco [facility] Start: 07-05-2021 End: 01-12-2022 Alcohol intake Ex-drinker (finding) [facility] Start: 1970 Sex Assigned At Not on file [facility] Start: 07-27-2021 End: 01-12-2022 Exposure to SARS-CoV-2 (event) Not sure [facility] Start: 07-05-2021 End: 01-12-2022 Tobacco use panel [facility] Work Phone: Adult Depression Screening Assessment 0 [facility] Work Phone: Start: 1970 Sex Assigned At Female [facility] Clinical Notes 07-05-2021 to 07-15-2023 Jaelyn Chaudhari LPN - 07/15/2023 10:48 AM Sally Bright APRN.CNP - 01/12/2022 3:43 PM EDTTelephone Encounter - Girish Serna Ia - 09/17/2021 3:01 PM Sally Bright APRN.CNP - 07/05/2021 9:20 AM EDT Note Date & Type Note Facility 07-15-2023 Note Patient Outreach (IN TMWS) CASI EDWARDS ([id number]) 1970 F Date Time Provider Department 07/15/23 JAELYN CHAUDHARI INTJoseluisWS During your visit today, we recorded the following information about you: Jaelyn Chaudhari LPN 07/15/2023 10:51 AM Signed POPULATION HEALTH NAVIGATION OUTREACH Action/FYI Patient is going to a different Doctor in [place] Marie PCP changed Reason for Outreach Care Gap/HCC or Scheduling Wellness Visits Care Gaps due: Physical Annual Wellness Visit Follow-up Appointment Patient Contacted: Spoke to patient/parent/or legal guardian Patient identified by name and : Yes Care Gap/HCC/Scheduling Wellness actions taken: Patient declined: Not interested in scheduling Navigation Signature: Jaelyn Chaudhari LPN July 15, 2023 10:48 AM Allergies As of Date: 07/15/2023 (No Known Allergies) Date Reviewed: 01/12/2022 Reviewed by: Ayla Bright APRN.AIR DEODORIZER SERVICER - Fully Assessed Prescriptions as of 07/15/2023 - losartan-hydroCHLOROthiazide (HYZAAR) 100-12.5 mg per tablet Take 1 tablet by mouth once daily. - cholecalciferol (VITAMIN D3) 5,000 unit tab Take 5,000 Units by mouth once daily. - evening primrose oil (EVENING PRIMROSE ORAL) Take 1,000 mg by mouth. - turmeric root extract 500 mg cap Once daily Problem List As Of Date 07/15/2023 Noted Resolved Primary hypertension [I10] 07/05/2021 History of colon polyps [Z86.010] 07/05/2021 Overweight (BMI 25.0-29.9) [E66.3] 07/05/2021 Encounter Status:Closed by JAELYN CHAUDHARI on 07/15/23 [facility] 07-15-2023 Note HNO ID: [id number] Author: JAELYN CHAUDHARI LPN Service: ? Author Type: LICENSED NURSE Type: Progress Notes Filed: 07/15/2023 10:51 Note Text: POPULATION HEALTH NAVIGATION OUTREACH Action/FYI Patient is going to a different Doctor in [place] Marie PCP changed Reason for Outreach Care Gap/HCC or Scheduling Wellness Visits Care Gaps due: Physical Annual Wellness Visit Follow-up Appointment Patient Contacted: Spoke to patient/parent/or legal guardian Patient identified by name and : Yes Care Gap/HCC/Scheduling Wellness actions taken: Patient declined: Not interested in scheduling Navigation Signature: Jaelyn Chaudhari LPN July 15, 2023 10:48 AM [facility] 07-15-2023 History of Present illness Narrative POPULATION HEALTH NAVIGATION OUTREACH Action/FYI Patient is going to a different Doctor in [place], Dr. Juli Underwood PCP changed Reason for Outreach Care Gap/HCC or Scheduling Wellness Visits Care Gaps due: Physical Annual Wellness Visit Follow-up Appointment Patient Contacted: Spoke to patient/parent/or legal guardian Patient identified by name and : Yes Care Gap/HCC/Scheduling Wellness actions taken: Patient declined: Not interested in scheduling Navigation Signature: Jaelyn Chaudhari LPN July 15, 2023 10:48 AM documented in this encounter [facility] 09-07-2022 Note Patient Outreach (IN TMMN) CASI EDWARDS ([id number]) 1970 F Date Time Provider Department 09/07/22 [place] CELAYA During your visit today, we recorded the following information about you: Allergies As of Date: 09/07/2022 (No Known Allergies) Date Reviewed: 01/12/2022 Reviewed by: Ayla Bright APRN.AIR DEODORIZER SERVICER - Fully Assessed Visit Diagnosis:Encounter for screening mammogram for breast cancer [Z12.31] Order(s):[facility] SCREENING [[id number]] Order #: [id number] FUTURE Prescriptions as of 09/12/2022 - losartan-hydroCHLOROthiazide (HYZAAR) 100-12.5 mg per tablet Take 1 tablet by mouth once daily. - cholecalciferol (VITAMIN D3) 5,000 unit tab Take 5,000 Units by mouth once daily. - evening primrose oil (EVENING PRIMROSE ORAL) Take 1,000 mg by mouth. - turmeric root extract 500 mg cap Once daily Problem List As Of Date 09/07/2022 Noted Resolved Primary hypertension [I10] 07/05/2021 History of colon polyps [Z86.010] 07/05/2021 Overweight (BMI 25.0-29.9) [E66.3] 07/05/2021 Encounter Status:Closed by DIPTI CROWDERUSER on 09/12/22 [facility] 01-12-2022 History of Present illness Narrative CC Patient presents with: Follow Up HPI Casi Edwards is a 51 year old female who presents to the office for blood pressure. Her visit today is for follow-up. Patient was last seen for this approximately 6 months ago. Medication changes: No Taking all medications as prescribed: Yes Side effects: No Home BP's: Yes 110's/60's Denies: headache, chest pain, palpitations, dyspnea, and peripheral edema. Last 4 Encounter BP Readings: Date: BP: 01/12/2022 116/68 08/06/2021 110/66 07/05/2021 120/80 03/22/2015 128/80 Last 3 Encounter Wt Readings: Date: Wt: 01/12/2022 74.4 kg (164 lb) 08/06/2021 75.3 kg (166 lb) 07/05/2021 74.8 kg (165 lb) REVIEW OF SYSTEMS See HPI PAST MEDICAL HISTORY Diagnosis Date History of colon polyps 07/05/2021 History of partial hysterectomy 07/05/2021 History of uterine fibroid 07/05/2021 Hyperlipidemia 07/05/2021 Vitamin D deficiency 07/05/2021 PAST SURGICAL HISTORY Procedure Laterality Date PAST SURGICAL HISTORY OF 2009 partial hysterectomy REDUCTION OF LARGE BREAST Bilateral 2005 ALLERGIES Patient has no known allergies. MEDICATIONS losartan-hydroCHLOROthiazide (HYZAAR) 100-12.5 mg per tablet Take 1 tablet by mouth once daily. cholecalciferol (VITAMIN D3) 5,000 unit tab Take 5,000 Units by mouth once daily. evening primrose oil (EVENING PRIMROSE ORAL) Take 1,000 mg by mouth. turmeric root extract 500 mg cap Once daily FAMILY HISTORY Problem Relation Age of Onset Hypertension Mother Thyroid Mother partial thyroidectomy Melanoma Mother ear Hypertension Father Cardiomyopathy Father Rashes / Skin problems Father vitiligo Auto-Immune Disorder Sister Hypertension Brother Diabetes Brother Hypertension Maternal Grandmother Breast Cancer Maternal Grandmother Hypertension Maternal Grandfather Hypertension Paternal Grandmother Hypertension Paternal Grandfather Heart Attack Paternal Grandfather in his 60's from this No Known Problems Daughter No Known Problems Son Social History Tobacco Use Smoking status: Never Smokeless tobacco: Never Vaping Use Vaping Use: Never used Substance Use Topics Alcohol use: Not Currently Drug use: Never PHYSICAL EXAM BP 116/68 (BP Site: Left Arm, BP Position: Sitting, BP Cuff Size: Large Adult) Pulse 80 Temp 36.6 C (97.9 F) (Temporal) Resp 16 Wt 74.4 kg (164 lb) BMI 27.83 kg/m General Appearance: well appearing, in no acute distress, alert Lungs: Lungs clear to auscultation. No wheezing, rhonchi, rales. Heart: RRR without murmur, gallop, or rubs. No ectopy DATA REVIEWED: Most recent labs ASSESSMENT/PLAN: 1. Primary hypertension - ICD9: 401.9, ICD10: I10 - good control - Continue current medication(s) - Recommended regular aerobic exercise. - Recommend home blood pressure monitoring, to bring results in on next visit - Goal of BP <130/80 Prescription instructions reviewed with patient as applicable. Potential red flag symptoms discussed with the patient. Reviewed appropriate action plan to take if red flag symptoms occur. Patient agreeable to treatment plan Ayla Bright APRN.CNP documented in this encounter [facility] 09-17-2021 Miscellaneous Notes Patient notified, verbalized understanding. Asking to be resent to [facility] Marie. Has one pill left It is a combination medication, the hydrochlorothiazide is combined with Losartan in one tablet Ayla Bright APRN.CNP Last seen pcp HUMAN DEVELOPMENT PROFESSOR 07/05/21. Next appt is 01/12/22. Patient has been identified by name and date of : Yes Pending Prescriptions Disp Refills LOSARTAN 100 MG-HYDROCHLOROTHIAZIDE 12.5 MG TABLET 0 Sig: Take 1 tablet by mouth once daily. ESTEFANIA: No Patient asking for a refill of the medication she takes along with this medication. She says it begins with hydro RX INSTRUCTIONS: Patient aware RX will be sent to pharmacy. No need to notify patient. Sirisha Silverio documented in this encounter [facility] 08-11-2021 Miscellaneous Notes August 12, 2021 PID: [id number] Casi Edwards [id number] [place] [address] Dear Ms. Edwards, Your prior imaging studies have arrived and been compared to your current study. We are pleased to inform you that the results of your recent breast imaging exam on 08/06/2021 are normal. Early detection of cancer is very important. We also understand recommendations regarding breast cancer screening are controversial. Please discuss with your primary care provider which strategy is best for you and whether a mammogram is right for you. Your imaging studies and report will be kept on file at [facility] as part of your permanent medical record and are available for your continuing care. Thank you for allowing us to help in meeting your health care needs. Sincerely, Dr. Higuera Interpreting Radiologist [facility] (Normal Old Films compared) documented in this encounter [facility] 08-06-2021 History of Present illness Narrative Casi is a 50 year old No obstetric history on file. who presents for an annual gynecologic exam without complaints. Postmenopausal: Hysterectomy left ovary remains HRT use: No. Last Pap: normal HPV: N/A History of abnormal pap: No Last mammogram: 2021 pending History of abnormal mammogram: No Sexually active: Yes Patient concerns for STD exposure: No. Pain with intercourse: No Postcoital bleeding: No OB History No obstetric history on file. 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 Comments: Sexual Activity: Yes; Male Contraception: No contraception data on record PAST MEDICAL HISTORY Diagnosis Date History of colon polyps 07/05/2021 History of partial hysterectomy 07/05/2021 History of uterine fibroid 07/05/2021 Hyperlipidemia 07/05/2021 Vitamin D deficiency 07/05/2021 PAST SURGICAL HISTORY Procedure Laterality Date PAST SURGICAL HISTORY OF 2009 partial hysterectomy REDUCTION OF LARGE BREAST Bilateral 2004 FAMILY HISTORY Problem Relation Age of Onset Hypertension Mother Thyroid Mother partial thyroidectomy Melanoma Mother ear Hypertension Father Cardiomyopathy Father Rashes / Skin problems Father vitiligo Auto-Immune Disorder Sister Hypertension Brother Diabetes Brother Hypertension Maternal Grandmother Breast Cancer Maternal Grandmother Hypertension Maternal Grandfather Hypertension Paternal Grandmother Hypertension Paternal Grandfather Heart Attack Paternal Grandfather in his 60's from this No Known Problems Daughter No Known Problems Son SOCIAL HISTORY Social History Tobacco Use Smoking status: Never Smoker Smokeless tobacco: Never Used Vaping Use Vaping Use: Never used Substance Use Topics Alcohol use: Not Currently Drug use: Never REVIEW OF SYSTEMS Abdomen: No abdominal pain, nausea, vomiting, diarrhea, or constipation. No bloating, early satiety, indigestion, or increased flatulence. Bladder: No dysuria, gross hematuria, urinary frequency, urinary urgency, or incontinence Breast: No breast lumps, nipple d/c, overlying skin changes, redness or skin retraction Allergies and current medication updated:Yes EXAM: BP 110/66 Ht 5' 4.37 (1.64m) Wt 166 lb (75.3kg) BMI 28.17 kg/(m^2). GENERAL: pleasant, female in no apparent distress HEENT: Normocephalic, atraumatic, mucus membranes moist and no lesions NECK: Supple, full range of motion, no adenopathy and thyroid normal DERMATOLOGY: Normal, without lesions, non-icteric and non-hirsute BREAST: soft, non-tender, symmetric, no dominant mass, normal nipple-areolar complex, no lymphadenopathy and no nipple discharge CHEST: Normal inspiratory effort ABDOMEN: soft, non-tender and no masses PELVIC: external genitalia normal, normal Bartholin's glands, urethra, Crowheart's glands, no vulvar lesions, good vaginal support, physiologic discharge present, normal appearing perineal body and perianal region, cervix surgically absent BIMANUAL: no adnexal masses, non-tender and uterus surgically absent RECTOVAGINAL: deferred. NEURO: alert and oriented x3,exam grossly non-focal EXTREMITIES: normal ASSESSMENT/PLAN: 1) Health maintenance: Pap/HPV screening no longer needed Mammogram up to date Nutrition, exercise and routine health maintenance exams reviewed. Calcium/Vitamin D supplementation information provided. Colon cancer screening: up to date with screening 2) Follow up one year or sooner as needed Nahed Maynard APRN.OMAR documented in this encounter [facility] 08-06-2021 Procedure note Radiology Service Progress Note PATIENT NAME: Casi Edwards DATE OF SERVICE: August 06, 2021 TIME: 9:25 AM PATIENT IDENTITY VERIFICATION COMPLETED USING TWO (2) IDENTIFIERS: Name and Date of confirmed by patient verbally. FALL SCREENING: Has the patient had 2 falls in the last year or 1 fall with injury or currently using an Ambulatory Assistive Device (Walker, Cane, Wheelchair, Crutches, etc.)? No PATIENT GENDER DATA: Female. status: : No status: NO. PATIENT RELEVANT IMPLANT DATA REVIEWED: Not Applicable RADIOLOGY DEPARTMENT: Mammography PERIPHERAL IV DATA: Not applicable SIGNED BY: Marcelle Stahl August 06, 2021 9:25 AM documented in this encounter [facility] 07-05-2021 History of Present illness Narrative CC: Patient presents with: Establish Care HPI Casi Edwards is a 50 year old female who presents today for annual physical exam and establish care. Previous PCP Dr. Stevens Patient has a history of hypertension taking medications as prescribed. Denies side effects. Average BP 120's/70's-80 She reports occasional hot flashes Exercise: likes to exercise by going to the gym 3 days a week-treadmill, rowing machine, stationary weights . Diet: Watches diet for salt (salty snacks, added salt, processed frozen/canned foods), sugary/sweet snacks, unhealthy fats: Yes REVIEW OF SYSTEMS General: no fevers, no chills, no night sweats, no change in appetite, no change in energy and no significant changes in weight HEENT: no frequent or significant headaches, no changes in hearing, no visual changes Respiratory: no cough, no wheezing, no shortness of breath, no hemoptysis Cardiovascular: no chest pain, no chest pressure, no palpitations, no swelling and no decrease in exercise tolerance GI: Negative for abdominal discomfort, blood in stools or black stools, change in bowel habit, heart burn, nausea, vomiting : Negative for dysuria, frequency and incontinence Musculoskeletal: Negative for joint pain or swelling, back pain or muscle pain Skin: Negative for lesions, rash, and itching Psych: Negative for sleep disturbance, mood disorder and recent psychosocial stressors PAST MEDICAL HISTORY Diagnosis Date History of colon polyps 07/05/2021 History of partial hysterectomy 07/05/2021 History of uterine fibroid 07/05/2021 Hyperlipidemia 07/05/2021 Vitamin D deficiency 07/05/2021 PAST SURGICAL HISTORY Procedure Laterality Date PAST SURGICAL HISTORY OF 2009 partial hysterectomy REDUCTION OF LARGE BREAST Bilateral 2005 ALLERGIES Patient has no known allergies. MEDICATIONS cholecalciferol (VITAMIN D-3) 5,000 unit tab Take 5,000 Units by mouth once daily. evening primrose oil (EVENING PRIMROSE ORAL) Take 1,000 mg by mouth. Losartan-Hydrochlorothiazide (HYZAAR) 100-12.5 mg per tablet Take 1 tablet by mouth once daily. FAMILY HISTORY Problem Relation Age of Onset Hypertension Mother Thyroid Mother partial thyroidectomy Melanoma Mother ear Hypertension Father Cardiomyopathy Father Rashes / Skin problems Father vitiligo Auto-Immune Disorder Sister Hypertension Brother Diabetes Brother Hypertension Maternal Grandmother Breast Cancer Maternal Grandmother Hypertension Maternal Grandfather Hypertension Paternal Grandmother Hypertension Paternal Grandfather Heart Attack Paternal Grandfather in his 60's from this No Known Problems Daughter No Known Problems Son Social History Tobacco Use Smoking status: Never Smoker Smokeless tobacco: Never Used Vaping Use Vaping Use: Never used Substance Use Topics Alcohol use: Not Currently Drug use: Never PHYSICAL EXAM BP 120/80 Pulse 93 Resp 14 Ht 160 cm (5' 3) Wt 74.8 kg (165 lb) SpO2 98% BMI 29.23 kg/m General Appearance: well appearing, in no acute distress, alert Pysch: mood and affect broad and appropriate Skin: Skin color, texture, turgor normal for age; Eyes: conjunctiva pink and moist, no icterus, sclera white, non-injected Neck: Thyroid normal size and symmetric without palpable nodules, Neck supple, No adenopathy Lymph nodes: No supraclavicular lymphadenopathy Lungs: Lungs clear to auscultation. No wheezing, rhonchi, rales. Heart: RRR without murmur, gallop, or rubs. No ectopy Ext: no edema in LE bilaterally, good distal pulses DEPRESSION SCREENING Never done HEPATITIS C SCREENING Never done HIV SCREENING Never done DTAP,TDAP,TD(1 - Tdap) Never done PAP TESTING Never done HPV TESTING Never done MAMMOGRAM Never done LIPID SCREEN Never done DIABETES SCREEN Never done COLORECTAL CANCER SCREENING Never done SHINGRIX VACCINE(1 of 2) Never done COVID-19 VACCINE(2 - Moderna 3-dose series) due on 06/22/2020 INFLUENZA(1) due on 10/21/2021 MENINGOCOCCAL CONJUGATE Aged Out ASSESSMENT/PLAN: 1. Well adult exam - ICD9: V70.0, ICD10: Z00.00 (primary diagnosis) - Counseled on healthy diet and regular exercise - Calcium intake with supplements or by diet of 1000 mg/day for under 50, 5813-2902 mg/day for 50+ - Discussed need and benefit for weight loss. BMI 29.23 kg/(m^2) - Due for PAP/HPV, will schedule with [facility] and can discuss menopausal symptoms at that time - Colorectal cancer screening recommended - patient states last colonoscopy was less than 5 years ago. - Mammogram ordered - exam recommended once yearly - Depression screening tool completed and reviewed with patient. Based on score and interview, patient is not at risk for depression and recommended no further intervention at this time. - Patient was counseled [id number] by myself (the billing provider) for the following immunizations and vaccine components, including side effects: COVID-19, DTaP and Shingrix. Patient declined all vaccines today - Follow up for annual exam in one year - COMP METABOLIC PANEL - LIPID PANEL BASIC 2. Primary hypertension - ICD9: 401.9, ICD10: I10 - good control - Continue current medication(s) - Recommended regular aerobic exercise. - Recommend home blood pressure monitoring, to bring results in on next visit - Goal of BP <130/80 3. Overweight (BMI 25.0-29.9) - ICD9: 278.02, ICD10: E66.3 Stable 4. Encounter for screening mammogram for breast cancer - ICD9: V76.12, ICD10: Z12.31 - RUDDY SCREENING 5. Screening for lipid disorders - ICD9: V77.91, ICD10: Z13.220 - LIPID PANEL BASIC 6. Special screening examination for viral disease - ICD9: V73.99, ICD10: Z11.59 - HEP C AB IA W/CONF SCRN 7. Screening for HIV (human immunodeficiency virus) - ICD9: V73.89, ICD10: Z11.4 - HIV 1 2 COMBO(AG/AB),WITH REFLEX TO DIFFERENTIATION Ayla Bright APRN.CNP documented in this encounter [facility] Evaluation note Diagnosis Well adult exam- Primary Routine general medical examination at a health care facility Primary hypertension Unspecified essential hypertension Overweight (BMI 25.0-29.9) Overweight Encounter for screening mammogram for breast cancer Screening for lipid disorders Special screening examination for viral disease Special screening examination for unspecified viral disease Screening for HIV (human immunodeficiency virus) Special screening examination for other specified viral diseases [facility] Diagnosis Encounter for gynecological examination without abnormal finding- Primary Routine gynecological examination Encounter for screening mammogram for malignant neoplasm of breast Other screening mammogram [facility] Diagnosis Encounter for screening mammogram for breast cancer [facility] Diagnosis Primary hypertension- Primary Unspecified essential hypertension [facility] noteNo assessment information availableW[facility] Work Phone: Evaluation note* Diagnosis Onset Date Resolution Status Admit Date Varicose veins of lower extremity noneactive December 04 8:56am [facility] Work Phone: Instructions* Name Dates Details How to Access Health Informa tion Online using Patient Portal and [employer] Apps Indication:Nonsmoker Start:12-May-2020 Instruction Type:Patient Education Patient Instructions Indication:Nonsmoker Start:12-May-2020 Instruction Type:Provider Instructions for Treatment How to access health informa tion online Indication:BMI 28.0-28.9,adult Start:04-Jan-2019 Instruction Type:Patient Education How to access health informa tion online - Detail Indication:BMI 28.0-28.9,adult Start:04-Jan-2019 Instruction Type:Patient Education Patient Instructions Indication:BMI 28.0-28.9,adult Start:04-Jan-2019 Instruction Type:Provider Instructions for Treatment How to access health informa tion online Indication:Tongue irritation Start:17-Jul-2017 Instruction Type:Patient Education How to access health informa tion online - Detail Indication:Tongue irritation Start:17-Jul-2017 Instruction Type:Patient Education Patient Instructions Indication:Tongue irritation Start:17-Jul-2017 Instruction Type:Provider Instructions for Treatment How to access health informa tion online Indication:Benign essential HTN Start:04-Dec-2015 Instruction Type:Patient Education How to access health informa tion online - Detail Indication:Benign essential HTN Start:04-Dec-2015 Instruction Type:Patient Education Patient Instructions Indication:Benign essential HTN Start:04-Dec-2015 Instruction Type:Provider Instructions for Treatment How to access health informa tion online - Detail Indication:Benign essential HTN Start:04-Aug-2014 Instruction Type:Patient Education How to access health informa tion online Indication:Benign essential HTN Start:04-Aug-2014 Instruction Type:Patient Education Patient Instructions Indication:Benign essential HTN Start:04-Aug-2014 Instruction Type:Provider Instructions for Treatment Patient Instructions Indication:Benign essential HTN Start:03-Jun-2013 Instruction Type:Provider Instructions for Treatment Patient Instructions Indication:Uterine fibroid Start:18-Jun-2012 Instruction Type:Provider Instructions for Treatment Patient Instructions Indication:Edema Start:24-May-2012 Instruction Type:Provider Instructions for Treatment [facility]; [facility] Work Phone: Instructions* Name Dates Details How to Access Health Informa tion Online using Patient Portal and [employer] Apps Indication:Nonsmoker Start:12-May-2020 Instruction Type:Patient Education Patient Instructions Indication:Nonsmoker Start:12-May-2020 Instruction Type:Provider Instructions for Treatment How to access health informa tion online Indication:BMI 28.0-28.9,adult Start:04-Jan-2019 Instruction Type:Patient Education How to access health informa tion online - Detail Indication:BMI 28.0-28.9,adult Start:04-Jan-2019 Instruction Type:Patient Education Patient Instructions Indication:BMI 28.0-28.9,adult Start:04-Jan-2019 Instruction Type:Provider Instructions for Treatment How to access health informa tion online Indication:Tongue irritation Start:17-Jul-2017 Instruction Type:Patient Education How to access health informa tion online - Detail Indication:Tongue irritation Start:17-Jul-2017 Instruction Type:Patient Education Patient Instructions Indication:Tongue irritation Start:17-Jul-2017 Instruction Type:Provider Instructions for Treatment How to access health informa tion online Indication:Benign essential HTN Start:04-Dec-2015 Instruction Type:Patient Education How to access health informa tion online - Detail Indication:Benign essential HTN Start:04-Dec-2015 Instruction Type:Patient Education Patient Instructions Indication:Benign essential HTN Start:04-Dec-2015 Instruction Type:Provider Instructions for Treatment How to access health informa tion online - Detail Indication:Benign essential HTN Start:04-Aug-2014 Instruction Type:Patient Education How to access health informa tion online Indication:Benign essential HTN Start:04-Aug-2014 Instruction Type:Patient Education Patient Instructions Indication:Benign essential HTN Start:04-Aug-2014 Instruction Type:Provider Instructions for Treatment Patient Instructions Indication:Benign essential HTN Start:03-Jun-2013 Instruction Type:Provider Instructions for Treatment Patient Instructions Indication:Uterine fibroid Start:18-Jun-2012 Instruction Type:Provider Instructions for Treatment Patient Instructions Indication:Edema Start:24-May-2012 Instruction Type:Provider Instructions for Treatment [facility] Work Phone: reason for referral (narrative)* Diagnostic Procedure Only (Routine) - Pending Review Specialty Diagnoses / Procedures Referred By Sarahi t Referred To Contact [facility] Diagnoses Encounter for screening mammogram for breast cancer Procedures RUDDY SCREENING SCREENING MAMMOGRAPHY BI 2-VIEW BREAST INC Ayla Villegas, ARMATURE CONNECTOR.AIR DEODORIZER SERVICER [address] [place] [address] [facility] [address] [place] [address] Referral ID Status Reason Start Date Expiration Date Visits Requested Visits Authorized [id number] Pending Review Auto-Generat ed Referral 07/05/2021 08/04/2022 1 1 [facility] for referral (narrative)* Diagnostic Procedure Only (Routine) - Pending Review Specialty Diagnoses / Procedures Referred By Sarahi hurley Referred To Contact [facility] Diagnoses Encounter for screening mammogram for malignant neoplasm of breast Procedures RUDDY SCREENING SCREENING MAMMOGRAPHY BI 2-VIEW BREAST INC CAD Nahed Maynard APRN.CNP [address] [place] [address] [facility] [address] [employer] [place] [address] Referral ID Status Reason Start Date Expiration Date Visits Requested Visits Authorized [id number] Pending Review Auto-Generat ed Referral 08/06/2021 09/05/2022 1 1 [facility] for referral (narrative)* Diagnostic Procedure Only (Routine) - Closed Specialty Diagnoses / Procedures Referred By Sarahi hurley Referred To Contact [facility] Diagnoses Encounter for screening mammogram for breast cancer Procedures RUDDY SCREENING SCREENING MAMMOGRAPHY BI 2-VIEW BREAST INC CAD Ayla Bright APRN.AIR DEODORIZER SERVICER [address] [place] [address] [facility] [address] [address] Referral ID Status Reason Start Date Expiration Date V isits Requested Visits Authorized [id number] Closed Auto-Generate d Referral 04/24/2021 04/23/2022 2 2 [facility] for referral (narrative)No reason for referral information availableWChildren[facility] Work Phone: Family History Unknown Family Member Name Dates Details Family Members In General Comments:Cancer, Heart/Lung. HBP, Thyroid Status:Active Father Comments:Vitiligo, HTN, anxi ety, CHF Status:Active Mother Comments:Hypothyroid, high c holesterol Status:Active Unknown Family Member Name Dates Details Family Members In General Comments:Cancer, Heart/Lung. HBP, Thyroid Status:Active Father Comments:Vitiligo, HTN, anxi ety, CHF Status:Active Mother Comments:Hypothyroid, high c holesterol Status:Active Unknown Family Member Name Dates Details Family Members In General Comments:Cancer, Heart/Lung. HBP, Thyroid Status:Active Father Comments:Vitiligo, HTN, anxi ety, CHF Status:Active Mother Comments:Hypothyroid, high c holesterol Status:Active Unknown Family Member Name Dates Details Family Members In General Comments:Cancer, Heart/Lung. HBP, Thyroid Status:Active Father Comments:Vitiligo, HTN, anxi ety, CHF Status:Active Mother Comments:Hypothyroid, high c holesterol Status:Active Unknown Family Member Name Dates Details Family Members In General Comments:Cancer, Heart/Lung. HBP, Thyroid Status:Active Father Comments:Vitiligo, HTN, anxi ety, CHF Status:Active Mother Comments:Hypothyroid, high c holesterol Status:Active Unknown Family Member Name Dates Details Family Members In General Comments:Cancer, Heart/Lung. HBP, Thyroid Status:Active Father Comments:Vitiligo, HTN, anxi ety, CHF Status:Active Mother Comments:Hypothyroid, high c holesterol Status:Active Unknown Family Member Name Dates Details Family Members In General Comments:Cancer, Heart/Lung. HBP, Thyroid Status:Active Father Comments:Vitiligo, HTN, anxi ety, CHF Status:Active Mother Comments:Hypothyroid, high c holesterol Status:Active Unknown Family Member Name Dates Details Family Members In General Comments:Cancer, Heart/Lung. HBP, Thyroid Status:Active Father Comments:Vitiligo, HTN, anxi ety, CHF Status:Active Mother Comments:Hypothyroid, high c holesterol Status:Active Unknown Family Member Name Dates Details Family Members In General Comments:Cancer, Heart/Lung. HBP, Thyroid Status:Active Father Comments:Vitiligo, HTN, anxi ety, CHF Status:Active Mother Comments:Hypothyroid, high c holesterol Status:Active Unknown Family Member Name Dates Details Family Members In General Comments:Cancer, Heart/Lung. HBP, Thyroid Status:Active Father Comments:Vitiligo, HTN, anxi ety, CHF Status:Active Mother Comments:Hypothyroid, high c holesterol Status:Active Unknown Family Member Name Dates Details Family Members In General Comments:Cancer, Heart/Lung. HBP, Thyroid Status:Active Father Comments:Vitiligo, HTN, anxi ety, CHF Status:Active Mother Comments:Hypothyroid, high c holesterol Status:Active Relationship Condition Age at Onset Recorded Date/T joe Not Specified Diabetes mellitus Unknown Cardiac disease Unknown Myocardial infarction Unknown Malignant neoplasm of breast Unknown Hypertension Unknown Malignant neoplasm of uterus Unknown Instructions Name Dates Details How to access health informa tion online Indication:Tongue irritation Start:17-Jul-2017 Instruction Type:Patient Education How to access health informa tion online - Detail Indication:Tongue irritation Start:17-Jul-2017 Instruction Type:Patient Education Patient Instructions Indication:Tongue irritation Start:17-Jul-2017 Instruction Type:Provider Instructions for Treatment How to access health informa tion online Indication:Benign essential HTN Start:04-Dec-2015 Instruction Type:Patient Education How to access health informa tion online - Detail Indication:Benign essential HTN Start:04-Dec-2015 Instruction Type:Patient Education Patient Instructions Indication:Benign essential HTN Start:04-Dec-2015 Instruction Type:Provider Instructions for Treatment How to access health informa tion online - Detail Indication:Benign essential HTN Start:04-Aug-2014 Instruction Type:Patient Education How to access health informa tion online Indication:Benign essential HTN Start:04-Aug-2014 Instruction Type:Patient Education Patient Instructions Indication:Benign essential HTN Start:04-Aug-2014 Instruction Type:Provider Instructions for Treatment Patient Instructions Indication:Benign essential HTN Start:03-Jun-2013 Instruction Type:Provider Instructions for Treatment Patient Instructions Indication:Uterine fibroid Start:18-Jun-2012 Instruction Type:Provider Instructions for Treatment Patient Instructions Indication:Edema Start:24-May-2012 Instruction Type:Provider Instructions for Treatment Name Dates Details How to access health informa tion online Indication:Tongue irritation Start:17-Jul-2017 Instruction Type:Patient Education How to access health informa tion online - Detail Indication:Tongue irritation Start:17-Jul-2017 Instruction Type:Patient Education Patient Instructions Indication:Tongue irritation Start:17-Jul-2017 Instruction Type:Provider Instructions for Treatment How to access health informa tion online Indication:Benign essential HTN Start:04-Dec-2015 Instruction Type:Patient Education How to access health informa tion online - Detail Indication:Benign essential HTN Start:04-Dec-2015 Instruction Type:Patient Education Patient Instructions Indication:Benign essential HTN Start:04-Dec-2015 Instruction Type:Provider Instructions for Treatment How to access health informa tion online - Detail Indication:Benign essential HTN Start:04-Aug-2014 Instruction Type:Patient Education How to access health informa tion online Indication:Benign essential HTN Start:04-Aug-2014 Instruction Type:Patient Education Patient Instructions Indication:Benign essential HTN Start:04-Aug-2014 Instruction Type:Provider Instructions for Treatment Patient Instructions Indication:Benign essential HTN Start:03-Jun-2013 Instruction Type:Provider Instructions for Treatment Patient Instructions Indication:Uterine fibroid Start:18-Jun-2012 Instruction Type:Provider Instructions for Treatment Patient Instructions Indication:Edema Start:24-May-2012 Instruction Type:Provider Instructions for Treatment Name Dates Details How to access health informa tion online Indication:BMI 28.0-28.9,adult Start:04-Jan-2019 Instruction Type:Patient Education How to access health informa tion online - Detail Indication:BMI 28.0-28.9,adult Start:04-Jan-2019 Instruction Type:Patient Education Patient Instructions Indication:BMI 28.0-28.9,adult Start:04-Jan-2019 Instruction Type:Provider Instructions for Treatment How to access health informa tion online Indication:Tongue irritation Start:17-Jul-2017 Instruction Type:Patient Education How to access health informa tion online - Detail Indication:Tongue irritation Start:17-Jul-2017 Instruction Type:Patient Education Patient Instructions Indication:Tongue irritation Start:17-Jul-2017 Instruction Type:Provider Instructions for Treatment How to access health informa tion online Indication:Benign essential HTN Start:04-Dec-2015 Instruction Type:Patient Education How to access health informa tion online - Detail Indication:Benign essential HTN Start:04-Dec-2015 Instruction Type:Patient Education Patient Instructions Indication:Benign essential HTN Start:04-Dec-2015 Instruction Type:Provider Instructions for Treatment How to access health informa tion online - Detail Indication:Benign essential HTN Start:04-Aug-2014 Instruction Type:Patient Education How to access health informa tion online Indication:Benign essential HTN Start:04-Aug-2014 Instruction Type:Patient Education Patient Instructions Indication:Benign essential HTN Start:04-Aug-2014 Instruction Type:Provider Instructions for Treatment Patient Instructions Indication:Benign essential HTN Start:03-Jun-2013 Instruction Type:Provider Instructions for Treatment Patient Instructions Indication:Uterine fibroid Start:18-Jun-2012 Instruction Type:Provider Instructions for Treatment Patient Instructions Indication:Edema Start:24-May-2012 Instruction Type:Provider Instructions for Treatment Name Dates Details How to access health informa tion online Indication:BMI 28.0-28.9,adult Start:04-Jan-2019 Instruction Type:Patient Education How to access health informa tion online - Detail Indication:BMI 28.0-28.9,adult Start:04-Jan-2019 Instruction Type:Patient Education Patient Instructions Indication:BMI 28.0-28.9,adult Start:04-Jan-2019 Instruction Type:Provider Instructions for Treatment How to access health informa tion online Indication:Tongue irritation Start:17-Jul-2017 Instruction Type:Patient Education How to access health informa tion online - Detail Indication:Tongue irritation Start:17-Jul-2017 Instruction Type:Patient Education Patient Instructions Indication:Tongue irritation Start:17-Jul-2017 Instruction Type:Provider Instructions for Treatment How to access health informa tion online Indication:Benign essential HTN Start:04-Dec-2015 Instruction Type:Patient Education How to access health informa tion online - Detail Indication:Benign essential HTN Start:04-Dec-2015 Instruction Type:Patient Education Patient Instructions Indication:Benign essential HTN Start:04-Dec-2015 Instruction Type:Provider Instructions for Treatment How to access health informa tion online - Detail Indication:Benign essential HTN Start:04-Aug-2014 Instruction Type:Patient Education How to access health informa tion online Indication:Benign essential HTN Start:04-Aug-2014 Instruction Type:Patient Education Patient Instructions Indication:Benign essential HTN Start:04-Aug-2014 Instruction Type:Provider Instructions for Treatment Patient Instructions Indication:Benign essential HTN Start:03-Jun-2013 Instruction Type:Provider Instructions for Treatment Patient Instructions Indication:Uterine fibroid Start:18-Jun-2012 Instruction Type:Provider Instructions for Treatment Patient Instructions Indication:Edema Start:24-May-2012 Instruction Type:Provider Instructions for Treatment Name Dates Details How to access health informa tion online Indication:BMI 28.0-28.9,adult Start:04-Jan-2019 Instruction Type:Patient Education How to access health informa tion online - Detail Indication:BMI 28.0-28.9,adult Start:04-Jan-2019 Instruction Type:Patient Education Patient Instructions Indication:BMI 28.0-28.9,adult Start:04-Jan-2019 Instruction Type:Provider Instructions for Treatment How to access health informa tion online Indication:Tongue irritation Start:17-Jul-2017 Instruction Type:Patient Education How to access health informa tion online - Detail Indication:Tongue irritation Start:17-Jul-2017 Instruction Type:Patient Education Patient Instructions Indication:Tongue irritation Start:17-Jul-2017 Instruction Type:Provider Instructions for Treatment How to access health informa tion online Indication:Benign essential HTN Start:04-Dec-2015 Instruction Type:Patient Education How to access health informa tion online - Detail Indication:Benign essential HTN Start:04-Dec-2015 Instruction Type:Patient Education Patient Instructions Indication:Benign essential HTN Start:04-Dec-2015 Instruction Type:Provider Instructions for Treatment How to access health informa tion online - Detail Indication:Benign essential HTN Start:04-Aug-2014 Instruction Type:Patient Education How to access health informa tion online Indication:Benign essential HTN Start:04-Aug-2014 Instruction Type:Patient Education Patient Instructions Indication:Benign essential HTN Start:04-Aug-2014 Instruction Type:Provider Instructions for Treatment Patient Instructions Indication:Benign essential HTN Start:03-Jun-2013 Instruction Type:Provider Instructions for Treatment Patient Instructions Indication:Uterine fibroid Start:18-Jun-2012 Instruction Type:Provider Instructions for Treatment Patient Instructions Indication:Edema Start:24-May-2012 Instruction Type:Provider Instructions for Treatment Name Dates Details How to access health informa tion online Indication:BMI 28.0-28.9,adult Start:04-Jan-2019 Instruction Type:Patient Education How to access health informa tion online - Detail Indication:BMI 28.0-28.9,adult Start:04-Jan-2019 Instruction Type:Patient Education Patient Instructions Indication:BMI 28.0-28.9,adult Start:04-Jan-2019 Instruction Type:Provider Instructions for Treatment How to access health informa tion online Indication:Tongue irritation Start:17-Jul-2017 Instruction Type:Patient Education How to access health informa tion online - Detail Indication:Tongue irritation Start:17-Jul-2017 Instruction Type:Patient Education Patient Instructions Indication:Tongue irritation Start:17-Jul-2017 Instruction Type:Provider Instructions for Treatment How to access health informa tion online Indication:Benign essential HTN Start:04-Dec-2015 Instruction Type:Patient Education How to access health informa tion online - Detail Indication:Benign essential HTN Start:04-Dec-2015 Instruction Type:Patient Education Patient Instructions Indication:Benign essential HTN Start:04-Dec-2015 Instruction Type:Provider Instructions for Treatment How to access health informa tion online - Detail Indication:Benign essential HTN Start:04-Aug-2014 Instruction Type:Patient Education How to access health informa tion online Indication:Benign essential HTN Start:04-Aug-2014 Instruction Type:Patient Education Patient Instructions Indication:Benign essential HTN Start:04-Aug-2014 Instruction Type:Provider Instructions for Treatment Patient Instructions Indication:Benign essential HTN Start:03-Jun-2013 Instruction Type:Provider Instructions for Treatment Patient Instructions Indication:Uterine fibroid Start:18-Jun-2012 Instruction Type:Provider Instructions for Treatment Patient Instructions Indication:Edema Start:24-May-2012 Instruction Type:Provider Instructions for Treatment Name Dates Details How to access health informa tion online Indication:BMI 28.0-28.9,adult Start:04-Jan-2019 Instruction Type:Patient Education How to access health informa tion online - Detail Indication:BMI 28.0-28.9,adult Start:04-Jan-2019 Instruction Type:Patient Education Patient Instructions Indication:BMI 28.0-28.9,adult Start:04-Jan-2019 Instruction Type:Provider Instructions for Treatment How to access health informa tion online Indication:Tongue irritation Start:17-Jul-2017 Instruction Type:Patient Education How to access health informa tion online - Detail Indication:Tongue irritation Start:17-Jul-2017 Instruction Type:Patient Education Patient Instructions Indication:Tongue irritation Start:17-Jul-2017 Instruction Type:Provider Instructions for Treatment How to access health informa tion online Indication:Benign essential HTN Start:04-Dec-2015 Instruction Type:Patient Education How to access health informa tion online - Detail Indication:Benign essential HTN Start:04-Dec-2015 Instruction Type:Patient Education Patient Instructions Indication:Benign essential HTN Start:04-Dec-2015 Instruction Type:Provider Instructions for Treatment How to access health informa tion online - Detail Indication:Benign essential HTN Start:04-Aug-2014 Instruction Type:Patient Education How to access health informa tion online Indication:Benign essential HTN Start:04-Aug-2014 Instruction Type:Patient Education Patient Instructions Indication:Benign essential HTN Start:04-Aug-2014 Instruction Type:Provider Instructions for Treatment Patient Instructions Indication:Benign essential HTN Start:03-Jun-2013 Instruction Type:Provider Instructions for Treatment Patient Instructions Indication:Uterine fibroid Start:18-Jun-2012 Instruction Type:Provider Instructions for Treatment Patient Instructions Indication:Edema Start:24-May-2012 Instruction Type:Provider Instructions for Treatment Name Dates Details How to Access Health Informa tion Online using Patient Portal and [employer] Apps Indication:Nonsmoker Start:12-May-2020 Instruction Type:Patient Education Patient Instructions Indication:Nonsmoker Start:12-May-2020 Instruction Type:Provider Instructions for Treatment How to access health informa tion online Indication:BMI 28.0-28.9,adult Start:04-Jan-2019 Instruction Type:Patient Education How to access health informa tion online - Detail Indication:BMI 28.0-28.9,adult Start:04-Jan-2019 Instruction Type:Patient Education Patient Instructions Indication:BMI 28.0-28.9,adult Start:04-Jan-2019 Instruction Type:Provider Instructions for Treatment How to access health informa tion online Indication:Tongue irritation Start:17-Jul-2017 Instruction Type:Patient Education How to access health informa tion online - Detail Indication:Tongue irritation Start:17-Jul-2017 Instruction Type:Patient Education Patient Instructions Indication:Tongue irritation Start:17-Jul-2017 Instruction Type:Provider Instructions for Treatment How to access health informa tion online Indication:Benign essential HTN Start:04-Dec-2015 Instruction Type:Patient Education How to access health informa tion online - Detail Indication:Benign essential HTN Start:04-Dec-2015 Instruction Type:Patient Education Patient Instructions Indication:Benign essential HTN Start:04-Dec-2015 Instruction Type:Provider Instructions for Treatment How to access health informa tion online - Detail Indication:Benign essential HTN Start:04-Aug-2014 Instruction Type:Patient Education How to access health informa tion online Indication:Benign essential HTN Start:04-Aug-2014 Instruction Type:Patient Education Patient Instructions Indication:Benign essential HTN Start:04-Aug-2014 Instruction Type:Provider Instructions for Treatment Patient Instructions Indication:Benign essential HTN Start:03-Jun-2013 Instruction Type:Provider Instructions for Treatment Patient Instructions Indication:Uterine fibroid Start:18-Jun-2012 Instruction Type:Provider Instructions for Treatment Patient Instructions Indication:Edema Start:24-May-2012 Instruction Type:Provider Instructions for Treatment Summary Purpose Advance Directives No Advanced Directives Records FoundNo Advanced Directives Records Found Chief Complaint and Reason for Visit Chief Complaint Admit Date Varicose veins December 04, 2024 8: 56am Reason for Visit Admit Date Varicose veins of lower extremity December 04, 2024 8:56am Additional Source Comments Source Comments (unrecognize d section and content) In the event this informatio n is protected by the Federal Confidentiality of Alcohol and Drug Abuse Patient Records regulations: The Federal rules restrict any use of the information to criminally investigate or prosecute any alcohol or drug abuse patient.[facility] the event this information is protected by the Federal Confidentiality of Alcohol and Drug Abuse Patient Records regulations: The Federal rules restrict any use of the information to criminally investigate or prosecute any alcohol or drug abuse patient.[facility] the event this information is protected by the Federal Confidentiality of Alcohol and Drug Abuse Patient Records regulations: The Federal rules restrict any use of the information to criminally investigate or prosecute any alcohol or drug abuse patient.[facility] the event this information is protected by the Federal Confidentiality of Alcohol and Drug Abuse Patient Records regulations: The Federal rules restrict any use of the information to criminally investigate or prosecute any alcohol or drug abuse patient.[facility] the event this information is protected by the Federal Confidentiality of Alcohol and Drug Abuse Patient Records regulations: The Federal rules restrict any use of the information to criminally investigate or prosecute any alcohol or drug abuse patient.[facility] the event this information is protected by the Federal Confidentiality of Alcohol and Drug Abuse Patient Records regulations: The Federal rules restrict any use of the information to criminally investigate or prosecute any alcohol or drug abuse patient.[facility] the event this information is protected by the Federal Confidentiality of Alcohol and Drug Abuse Patient Records regulations: The Federal rules restrict any use of the information to criminally investigate or prosecute any alcohol or drug abuse patient.[facility] Reason for Visit (unrecogniz ed section and content) Reason Comments Establish Care Specialty Diagnoses / Procedures Referred By Contac t Referred To Contact Internal Medicine / INTERNAL MEDICINE Diagnoses Encounter for general adult medical examination without abnormal findings TO ESTABLISH Procedures OFFICE/OUTPATIENT ESTABLISHED MOD MDM 30-39 MIN 4C NEW Self Ayla Bright, ARMATURE CONNECTOR.AIR DEODORIZER SERVICER [address] [place] [address] Referral ID Status Reason Start Date Expiration Date Visits Re quested Visits Authorized [id number] Closed 07/05/2021 04/23/2022 1 1 Reason Onset Date Comments Yearly Exam 08/06/2021 Specialty Diagnoses / Procedures Referred By Contac t Referred To Contact Gynecology / 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 PROGRAM 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 SPECIALIST Diagnoses Pap Procedures OFFICE/OUTPATIENT NEW MODERATE MDM 45-59 MINUTES NEW I PATIENT zA Celaya MD [address] [place] [address] Nahed Maynard, ARMATURE CONNECTOR.AIR [employer] [address] [place] [address] Referral ID Status Reason Start Date Expiration Date Visits Re quested Visits Authorized [id number] Closed 04/24/2021 04/23/2022 1 1 Reason Comments Radiology Mammogram Specialty Diagnoses / Procedures Referred By Zohrehac t Referred To Contact [facility] Diagnoses Encounter for screening mammogram for breast cancer Procedures RUDDY SCREENING SCREENING MAMMOGRAPHY BI 2-VIEW BREAST INC CAD Ayla Bright, ARMATURE CONNECTOR.AIR DEODORIZER SERVICER [address] [place] [address] [facility] [address] [place] [address] Referral ID Status Reason Start Date Expiration Date V isits Requested Visits Authorized [id number] Closed Auto-Generate d Referral 04/24/2021 04/23/2022 2 2 Reason Onset Date Comments Refill Request 09/16/2021 Reason Comments Follow Up Specialty Diagnoses / Procedures Referred By Contac t Referred To Contact Internal Medicine / INTERNAL MEDICINE Diagnoses Follow-up for BP Procedures OFFICE/OUTPATIENT ESTABLISHED MOD MDM 30-39 MIN 4C EST Az Celaya MD [address] [place] [address] Ayla Bright APRN.CNP [address] [place] [address] Referral ID Status Reason Start Date Expiration Date Visits Re quested Visits Authorized [id number] Closed 04/24/2021 04/12/2022 1 1 Care Teams (unrecognized sec tion and content) Dietician Relationship Specialty Start Date End Date Az Celaya MD [address] [place], [place] [id number] PCP - General Internal Medicine 07/05/21 Dietician Relationship Specialty Start Date End Date Az Celaya MD [address] [place], [place] [id number] PCP - General Internal Medicine 07/05/21 Dietician Relationship Specialty Start Date End Date Az Celaya MD [address] [place] [address] PCP - General Internal Medicine 07/05/21 Dietician Relationship Specialty Start Date End Date Az Celaya MD [address] [place] [address] PCP - General Internal Medicine 07/05/21 Dietician Relationship Specialty Start Date End Date Az Celaya MD [address] [place], [place] [id number] PCP - General Internal Medicine 07/05/21 Team Status: Active Member Role/Relationship Status Dates Dr. Dee Stevens , DO Family Provider Active Trish CORDOVA PA-C Primary Care Provider Active Team Status: Inactive Member Role/Relationship Status Dates TASHA Camargo-C Primary Care Provider Active Start: October 31, 2024 End: October 31, 2024 TASHA Camargo-C Attending Provider Active Start: October 31, 2024 End: October 31, 2024 Trishmaycol CORDOVA PA-C Referring Provider Active Start: October 31, 2024 End: October 31, 2024 Team Status: Inactive Member Role/Relationship Status Dates Trish CORDOVA PA-C Primary Care Provider Active Start: December 04, 2024 End: December 04, 2024 Trish CORDOVA PA-C Referring Provider Active Start: December 04, 2024 End: December 04, 2024 TASHA Rankin Attending Provider Active Star t: December 04, 2024 End: December 04, 2024 INFORMATION SOURCE (unrecogn ized section and content) DATE CREATED AUTHOR 07/16/2023 [facility] DATE CREATED AUTHOR AUTHOR'S ORGANIZ ATION 12/02/2024 [facility] Goals (unrecognized section and content) Goals may be documented in a n alternate sectionGoals may be documented in an alternate section FOR RECORDS PERTAINING TO PATIENTS WHO ARE OR HAVE BEEN ENROLLED IN A CHEMICAL DEPENDENCY/SUBSTANCEABUSE PROGRAM, SOME INFORMATION MAY BE OMITTED. This clinical summary was aggregated from multiple sources. Caution should be exercised in using it in the provision of clinical care. This summary normalizes information from multiple sources, and as a consequence, information in this document may materially change the coding, format and clinical context of patient data. In addition, data may be omitted in some cases. CLINICAL DECISIONS SHOULD BE BASED ON THE PRIMARY CLINICAL RECORDS. [facility]. provides no warranty or guarantee of the accuracy or completeness of information in this document.
== END | disposition home or self-care (01) ==
LOC: CVS 10:11
PROVIDERS: PCP Family Medicine; Referring Provider Physician Assistant; Visit Provider Physician Assistant
DX: M79.604 Pain in right leg (principal); I87.2 Venous insufficiency (chronic) (peripheral)
CPT/HCPCS: 93971